=== PATIENT | female | born 1940 | race Caucasian/White ===

== ENCOUNTER 2019-05-18 05:23 | Emergency (ER) | payer MEDICARE, MEDICAID, SELFPAY ==
[2019-05-18 05:24] VITALS: BMI 27.4
--- NOTE | 2019-05-18 05:38 | PC.NURSE ---
EKG done 535 and shown to ER doctor.
--- NOTE | 2019-05-18 05:50 | XRR_ITS ---
PROCEDURE INFORMATION: Exam: XR Chest, 1 View Exam date and time: 05/18/2019 6:01 AM Age: 78 years old Clinical indication: Chest pain; Prior surgery; Surgery type: Pacemaker TECHNIQUE: Imaging protocol: XR of the chest Views: 1 view. COMPARISON: CR Chest 1 [place] [id number] 03/22/2019 8:08 PM FINDINGS: Tubes, catheters and devices: Pacemaker overlies the left chest with leads positioned RA and RV. Lungs: Minor area of pneumonitis or atelectasis right lower lobe. Pleural space: Persistent pleural-based opacity in the right upper chest laterally most likely similar allowing for differences of positioning. Probably external soft tissue density at the lower left chest versus pleural thickening or doubtful left-sided effusion. Heart/Mediastinum: Stable accentuated heart size. Surgical clips upper mediastinum with mild widening of the upper mediastinum which is similar. Bones/joints: Osteopenia. Other findings: Bilateral scattered calcified granulomata. XR/XR chest 1V portable [id number] IMPRESSION: 1. Similar pleural based opacity of the right upper chest laterally. 2. Lower left chest superimposed soft tissue density versus less likely pleural effusion. 3. Minor area of pneumonitis or atelectasis right lower lobe. 4. Stable cardiomegaly.
--- NOTE | 2019-05-18 05:50 | ECG_ITS ---
Measurements Intervals [place] Rate: 103 P: [place]: 0 QRS: -42 QRSD: 130 T: 123 QT: 374 QTc: 490 ATRIAL FIBRILLATION WITH RAPID VENTRICULAR RESPONSE LEFT AXIS DEVIATION [QRS AXIS < -30] VOLTAGE CRITERIA FOR LVH [MEETS CRITERIA IN ONE OF: R(aVL), S(V1), R(V5), R(V5/ (V5/V6)+S(V1)] POSSIBLE ANTEROSEPTAL MYOCARDIAL INFARCTION , PROBABLY OLD [30 ms Q WAVE IN V1-V4] ST DEVIATION AND MODERATE T-WAVE ABNORMALITY, CONSIDER LATERAL ISCHEMIA [-0.1+ mV mV T WAVE IN I/aVL/V5/V6] Compared to ECG 03/22/2019 21:03:18 No significant changes Electronically Signed On 05-18-2019 18:53:21 KNURLING MACHINE OPERATOR by Lazaro Marinelli M.D. [email or web address]
--- NOTE | 2019-05-18 05:51 | ED_ITS ---
Documented by User: Urmila Urbina 05/18/19 10:29 HPI - General Adult General: Chief complaint: General Medical Stated complaint: CHEST PAIN Time Seen by Provider: 05/18/19 05:31 History of Present Illness: HPI narrative: Patient received in signout from Dr. Lassiter. Please see his note for his history, physical exam and medical decision-making notes. Physical Exam Const: COMMON NORMALS: no apparent distress, oriented x3, no limitations, healthy appearing and well nourished EXAM LIMITATIONS: no altered mental status GENERAL APPEARANCE: cooperative, well kempt and well developed ORIENTATION/CONSCIOUSNESS: Yes awake HENMT: COMMON NORMALS: normocephalic, head/scalp atraumatic, hearing grossly normal bilaterally, external ears normal, EAC's normal, external nose normal and moist oral mucous membranes HEAD & SCALP: normal to inspection, normocephalic and atraumatic FACE & SINUS: normal facial exam and face symmetric NOSE: external nose normal and nares normal EXTERNAL EAR: Yes external ears normal EXTERNAL AUDITORY CANAL: EAC's normal MOUTH: oral and palatal mucosa normal and tongue normal Eye: COMMON NORMALS: PERRL, EOMs intact bilaterally, conjunctivae normal and no scleral icterus GENERAL EYE: normal appearance of both eyes and normal light reflex CONJUNCTIVA: Yes conjunctivae normal SCLERA: sclerae normal CORNEA: Yes corneas normal PUPIL: Yes PERRL DIRECT OPHTHALMOSCOPY: Yes normal light reflex Neck/C-Spine: COMMON NORMALS: full ROM, no lymphadenopathy, supple, no meningeal signs and no JVD GENERAL: Yes normal visual inspection and Yes trachea midline CERVICAL SPINE: Yes cervical ROM normal Chest: COMMONS NORMALS: inspection of chest normal and palpation of chest normal Resp: COMMON NORMALS: normal respiratory effort, no retractions, no use of accessory muscles and clear to auscultation bilaterally EFFORT & INSPECTION: Yes able to speak in complete sentences AUSCULTATION: clear to auscultation bilaterally Cardio: COMMON NORMALS: no JVD, regular rate, regular rhythm, S1 normal heart sound, S2 normal heart sound, no gallops, no clicks, no murmurs and no rub JUGULAR VENOUS DISTENTION: no JVD RATE: regular rate RHYTHM: regular rhythm HEART SOUNDS: S1 normal and S2 normal GI: COMMON NORMALS: soft to palpation, non-tender, no hepatosplenomegaly and no masses INSPECTION: Yes normal to inspection PALPATION: Yes soft and Yes no hepatosplenomegaly : COMMON NORMALS: Yes no CVA tenderness BLADDER/KIDNEY EXAM: Yes no CVA tenderness Back/Pelvis: COMMON NORMALS: no CVA tenderness, thoracic and lumbar spine normal to inspection, no thoracic nor lumbar tenderness and thoraco-lumbar ROM normal Extremity: COMMON NORMALS: normal to inspection, full ROM, normal capillary refill, no joint enlargement, no clubbing, cyanosis or edema and no calf tenderness Neuro: COMMON NORMALS: oriented x3, CN's II-XII intact bilaterally, moves all extremities, no focal motor deficits and no sensory deficits noted MENINGEAL SIGNS: Yes no meningeal signs Psych: COMMON NORMALS: mental status grossly normal, thought process normal, cooperative, affect normal, speech normal and activity/motor behavior normal APPEARANCE: Yes well kempt SPEECH: Yes normal speech THOUGHT PROCESS: normal thought process Skin: COMMON NORMALS: no rashes or lesions noted, skin turgor normal, no jaundice, no petechiae and no mottling GENERAL SKIN EXAM: no rashes or lesions noted and turgor normal Course Vital Signs: Vital signs: Vital Signs Pulse Rate 80 05/18/19 09:29 Respiratory Rate 14 05/18/19 09:29 Blood Pressure 112/75 05/18/19 09:29 Pulse Oximetry 97 05/18/19 09:29 MDM - General Adult MDM Narrative: Medical decision making narrative: She comes in with a complaint of chest pain but she adamantly denies this. At this time she states she wants to go home and she does not want to be here. I reviewed this with her son Mr. Glynn and he is fine with her going back to the jail. The patie nt shows no sign of toxicity and is oriented to person, place and time. She understands she is welcome to return if her symptoms change but at this time she wants to be discharged. Patient's EKG shows A. fib and she slows an elevated rate in the 100s at this time but she is angry and yelling because she wants to leave now. I see no sign of sepsis, overwhelming pneumonia, she not hypoxic and she speaking clearly and is agitated. Her son does not want me to become any more aggressive with her work-up. I did review the case with Dr. Kee and he is okay with doxycycline covering her pneumonia as she has so many other listed allergies. He does state if there is any problems he will have the patient sent back from the jail but at this time he is fine with her being discharged. Lab Data: Attestation: I reviewed the patient's lab results. Labs: Lab Results 05/18/19 05/18/19 05/18/19 Range/Units 06:06 06:06 06:06 WBC 6.4 (4.0-10.0) 10^3/ uL RBC 4.45 (4.1-5.3) 10^6/u L Hgb 11.8 (11.5-15.3) g/dL Hct 38.8 (37.0-47.0) % MCV 87.2 (81-99) fL MCH 26.5 L (28.0-34.0) pg MCHC 30.4 (30.0-36.0) g/dL RDW 16.0 H (12.1-15.1) % Plt Count 257 (130-400) 10^3/c mm MPV 9.8 (7.4-10.4) fL Neut % (Auto) 57.5 % Lymph % (Auto) 22.5 % [place] % (Auto) 17.6 % Eos % (Auto) 1.6 % Baso % (Auto) 0.6 % Neut # (Auto) 3.7 (1.8-7.7) 10^3/u L Lymph # (Auto) 1.4 (0.8-4.8) 10^3/u L [place] # (Auto) 1.1 H (0.2-0.9) 10^3/u L Eos # (Auto) 0.1 (0.0-0.8) 10^3/u L Baso # (Auto) 0.0 (0.0-0.1) 10^3/u L Nucleated RBC % (a uto) 0 % Nucleated RBCs # 0.0 /100WBC Sodium 137 (136-145) mmol/L Potassium 3.5 (3.5-5.1) mmol/L Chloride 97 L (98-107) mmol/L Carbon Dioxide 28 (22-29) mmol/L Anion Gap 15.5 (5-19) BUN 13 (8-23) mg/dL Creatinine 1.1 H (0.5-0.9) mg/dL Glucose 114 H (74-106) mg/dL Calculated Osmolal ity 281 L (285-295) mOsm/k g Lactate (0.5-2.2) mmol/L Calcium 9.3 (8.5-10.5) mg/dL Troponin T Baselin e 35 H (0-10) ng/mL Troponin T 120 Min [place] (0-10) ng/mL Delta Troponin T (0-10) ABS# NT-Pro-B Natriuret Pep 2775 H (0-450) pg/mL 05/18/19 05/18/19 Range/Units 07:05 07:55 WBC (4.0-10.0) 10^3/ uL RBC (4.1-5.3) 10^6/u L Hgb (11.5-15.3) g/dL Hct (37.0-47.0) % MCV (81-99) fL MCH (28.0-34.0) pg MCHC (30.0-36.0) g/dL RDW (12.1-15.1) % Plt Count (130-400) 10^3/c mm MPV (7.4-10.4) fL Neut % (Auto) % Lymph % (Auto) % [place] % (Auto) % Eos % (Auto) % Baso % (Auto) % Neut # (Auto) (1.8-7.7) 10^3/u L Lymph # (Auto) (0.8-4.8) 10^3/u L [place] # (Auto) (0.2-0.9) 10^3/u L Eos # (Auto) (0.0-0.8) 10^3/u L Baso # (Auto) (0.0-0.1) 10^3/u L Nucleated RBC % (a uto) % Nucleated RBCs # /100WBC Sodium (136-145) mmol/L Potassium (3.5-5.1) mmol/L Chloride (98-107) mmol/L Carbon Dioxide (22-29) mmol/L Anion Gap (5-19) BUN (8-23) mg/dL Creatinine (0.5-0.9) mg/dL Glucose (74-106) mg/dL Calculated Osmolal ity (285-295) mOsm/k g Lactate 1.1 (0.5-2.2) mmol/L Calcium (8.5-10.5) mg/dL Troponin T Baselin e (0-10) ng/mL Troponin T 120 Min [place] 37.16 H (0-10) ng/mL Delta Troponin T 2.16 (0-10) ABS# NT-Pro-B Natriuret Pep (0-450) pg/mL Discharge Plan Discharge Patient Disposition: SNF w Plan Readm Clinical Impression: Chest pain Qualifiers: Chest pain type: unspecified Qualified Code(s): R07.9 - Chest pain, unspecified Pneumonia Qualifiers: Pneumonia type: due to unspecified organism Laterality: right Lung location: lower lobe of lung Qualified Code(s): J18.9 - Pneumonia, unspecified organism Condition: Stable Prescriptions: New doxycycline hyclate 100 mg capsule 100 mg PO BID 10 Days Qty: 20 RF: 0 No Action albuterol sulfate 2.5 mg /3 mL (0.083 %) Solution For Nebulization 2.5 mg INHALATION Q4H PRN (Reason: Wheezing) RF: 0 hydrocodone-acetaminophen 5-325 mg Tablet 1 tab PO Q4H PRN (Reason: Pain) RF: 0 ondansetron HCl [Zofran] 4 mg Tablet 4 mg PO Q4H PRN (Reason: Nausea And Vomiting) RF: 0 lorazepam [Ativan] 0.5 mg Tablet 0.5 mg PO TID PRN (Reason: Anxiety) RF: 0 magnesium hydroxide [Milk of Magnesia] 400 mg/5 mL Suspension 30 ml PO DAILY PRN (Reason: Constipation) RF: 0 diphenhydramine HCl [Benadryl] 25 mg Capsule 25 mg PO BEDTIME PRN (Reason: Allergy Symptoms) RF: 0 calcium carbonate [Tums] 200 mg calcium (500 mg) Tablet,Chewable 200 - 400 mg PO Q4H PRN (Reason: Indigestion) RF: 0 Fleet Enema 19-7 gram/118 mL Enema 118 ml OR DAILY PRN (Reason: Constipation) RF: 0 nitroglycerin 0.4 mg Tablet, Sublingual 0.4 mg SUBLINGUAL Q5M PRN (Reason: Chest Pain) RF: 0 bisacodyl [Dulcolax (bisacodyl)] 5 mg Tablet,Delayed Release (Dr/Ec) 5 mg PO DAILY PRN (Reason: Constipation) RF: 0 nystatin 100,000 unit/gram Powder 1 applic TOPICAL BID PRN (Reason: galded area) RF: 0 Preparation H(pe,cb) 0.25-88.44 % Suppository 1 supp OR Q6H PRN (Reason: Hemorrhoids) RF: 0 Discharge Orders: Discharge Order (Routine); Ordered 05/18/19 Ordered By: Urmila Urbina Referrals: Andreas Sanabria DO [Primary Care Provider] - Discharge Diet: Usual diet Discharge Activity: Increase activity as tolerated Patient Instructions: Bacterial Pneumonia (ED) Activity Restrictions/Additional Instructions: Please return to the ER immediately for any of the signs or symptoms listed on your discharge instruction sheets, worsening/changing of your symptoms, you are not getting better as quickly as expected, or for ANY other cause or concerns. Discharge Date/Time: 05/18/19 09:31 Sign Out Sign Out Data: Patient Sign Out occurred on 05/18/19 at 06:31. Patient's care was discussed, and care was transferred from to Urmila Urbina. Coding Level of Care Code ED Asphalt Dauber for Chg Fwd Exam Problem Focused Documented by User: Srinivasa Lassiter DO 05/18/19 22:29 HPI - General Adult General: Chief complaint: General Medical Stated complaint: CHEST PAIN Time Seen by Provider: 05/18/19 05:31 History of Present Illness: HPI narrative: 78-year-old jail patient presenting with supposedly a complaint of chest pain, although she denied it on my exam. She has been coughing. She has been treated in the jail for pneumonia evidently. Onset (ago): day(s) Associated symptoms: Reports chest pain, cough, decreased appetite and fevers/chills; Deny dyspnea, headache(s), nausea, rash or vomiting Review of Systems Const: Denies: fever or chills Eyes: Denies: change in vision or blurry vision Card: Reports: chest pain Resp: Reports: non-productive cough; Denies: shortness of breath, productive cough or wheezing GI: Denies: abdominal pain, nausea, vomiting, rectal pain, blood in stool or black tarry stool : Denies: painful urination, urinary frequency, urinary urgency or blood in urine Musc: Denies: back pain Skin/Breast: Denies: rash Neuro: Denies: headache or dizziness Course ED course: Patient checked out to Dr. Urbina at shift change Vital Signs: Vital signs: Vital Signs Pulse Rate 80 05/18/19 09:29 Respiratory Rate 14 05/18/19 09:29 Blood Pressure 112/75 05/18/19 09:29 Pulse Oximetry 97 05/18/19 09:29 [facility] - General Adult Lab Data: Labs: Lab Results 05/18/19 05/18/19 05/18/19 Range/Units 06:06 06:06 06:06 WBC 6.4 (4.0-10.0) 10^3/ uL RBC 4.45 (4.1-5.3) 10^6/u L Hgb 11.8 (11.5-15.3) g/dL Hct 38.8 (37.0-47.0) % MCV 87.2 (81-99) fL MCH 26.5 L (28.0-34.0) pg MCHC 30.4 (30.0-36.0) g/dL RDW 16.0 H (12.1-15.1) % Plt Count 257 (130-400) 10^3/c mm MPV 9.8 (7.4-10.4) fL Neut % (Auto) 57.5 % Lymph % (Auto) 22.5 % [place] % (Auto) 17.6 % Eos % (Auto) 1.6 % Baso % (Auto) 0.6 % Neut # (Auto) 3.7 (1.8-7.7) 10^3/u L Lymph # (Auto) 1.4 (0.8-4.8) 10^3/u L [place] # (Auto) 1.1 H (0.2-0.9) 10^3/u L Eos # (Auto) 0.1 (0.0-0.8) 10^3/u L Baso # (Auto) 0.0 (0.0-0.1) 10^3/u L Nucleated RBC % (a uto) 0 % Nucleated RBCs # 0.0 /100WBC Sodium 137 (136-145) mmol/L Potassium 3.5 (3.5-5.1) mmol/L Chloride 97 L (98-107) mmol/L Carbon Dioxide 28 (22-29) mmol/L Anion Gap 15.5 (5-19) BUN 13 (8-23) mg/dL Creatinine 1.1 H (0.5-0.9) mg/dL Glucose 114 H (74-106) mg/dL Calculated Osmolal ity 281 L (285-295) mOsm/k g Lactate (0.5-2.2) mmol/L Calcium 9.3 (8.5-10.5) mg/dL Troponin T Baselin e 35 H (0-10) ng/mL Troponin T 120 Min [place] (0-10) ng/mL Delta Troponin T (0-10) ABS# NT-Pro-B Natriuret Pep 2775 H (0-450) pg/mL 05/18/19 05/18/19 Range/Units 07:05 07:55 WBC (4.0-10.0) 10^3/ uL RBC (4.1-5.3) 10^6/u L Hgb (11.5-15.3) g/dL Hct (37.0-47.0) % MCV (81-99) fL MCH (28.0-34.0) pg MCHC (30.0-36.0) g/dL RDW (12.1-15.1) % Plt Count (130-400) 10^3/c mm MPV (7.4-10.4) fL Neut % (Auto) % Lymph % (Auto) % [place] % (Auto) % Eos % (Auto) % Baso % (Auto) % Neut # (Auto) (1.8-7.7) 10^3/u L Lymph # (Auto) (0.8-4.8) 10^3/u L [place] # (Auto) (0.2-0.9) 10^3/u L Eos # (Auto) (0.0-0.8) 10^3/u L Baso # (Auto) (0.0-0.1) 10^3/u L Nucleated RBC % (a uto) % Nucleated RBCs # /100WBC Sodium (136-145) mmol/L Potassium (3.5-5.1) mmol/L Chloride (98-107) mmol/L Carbon Dioxide (22-29) mmol/L Anion Gap (5-19) BUN (8-23) mg/dL Creatinine (0.5-0.9) mg/dL Glucose (74-106) mg/dL Calculated Osmolal ity (285-295) mOsm/k g Lactate 1.1 (0.5-2.2) mmol/L Calcium (8.5-10.5) mg/dL Troponin T Baselin e (0-10) ng/mL Troponin T 120 Min [place] 37.16 H (0-10) ng/mL Delta Troponin T 2.16 (0-10) ABS# NT-Pro-B Natriuret Pep (0-450) pg/mL Discharge Plan Discharge Patient Disposition: SNF w Plan Readm Clinical Impression: Chest pain Qualifiers: Chest pain type: unspecified Qualified Code(s): R07.9 - Chest pain, unspecified Pneumonia Qualifiers: Pneumonia type: due to unspecified organism Laterality: right Lung location: lower lobe of lung Qualified Code(s): J18.9 - Pneumonia, unspecified organism Condition: Stable Prescriptions: New doxycycline hyclate 100 mg capsule 100 mg PO BID 10 Days Qty: 20 RF: 0 No Action albuterol sulfate 2.5 mg /3 mL (0.083 %) Solution For Nebulization 2.5 mg INHALATION Q4H PRN (Reason: Wheezing) RF: 0 hydrocodone-acetaminophen 5-325 mg Tablet 1 tab PO Q4H PRN (Reason: Pain) RF: 0 ondansetron HCl [Zofran] 4 mg Tablet 4 mg PO Q4H PRN (Reason: Nausea And Vomiting) RF: 0 lorazepam [Ativan] 0.5 mg Tablet 0.5 mg PO TID PRN (Reason: Anxiety) RF: 0 magnesium hydroxide [Milk of Magnesia] 400 mg/5 mL Suspension 30 ml PO DAILY PRN (Reason: Constipation) RF: 0 diphenhydramine HCl [Benadryl] 25 mg Capsule 25 mg PO BEDTIME PRN (Reason: Allergy Symptoms) RF: 0 calcium carbonate [Tums] 200 mg calcium (500 mg) Tablet,Chewable 200 - 400 mg PO Q4H PRN (Reason: Indigestion) RF: 0 Fleet Enema 19-7 gram/118 mL Enema 118 ml OR DAILY PRN (Reason: Constipation) RF: 0 nitroglycerin 0.4 mg Tablet, Sublingual 0.4 mg SUBLINGUAL Q5M PRN (Reason: Chest Pain) RF: 0 bisacodyl [Dulcolax (bisacodyl)] 5 mg Tablet,Delayed Release (Dr/Ec) 5 mg PO DAILY PRN (Reason: Constipation) RF: 0 nystatin 100,000 unit/gram Powder 1 applic TOPICAL BID PRN (Reason: galded area) RF: 0 Preparation H(pe,cb) 0.25-88.44 % Suppository 1 supp OR Q6H PRN (Reason: Hemorrhoids) RF: 0 Discharge Orders: Discharge Order (Routine); Ordered 05/18/19 Ordered By: Urmila Urbina Referrals: Andreas Sanabria DO [Primary Care Provider] - Discharge Diet: Usual diet Discharge Activity: Increase activity as tolerated Patient Instructions: Bacterial Pneumonia (ED) Activity Restrictions/Additional Instructions: Please return to the ER immediately for any of the signs or symptoms listed on your discharge instruction sheets, worsening/changing of your symptoms, you are not getting better as quickly as expected, or for ANY other cause or concerns. Discharge Date/Time: 05/18/19 09:31 Sign Out Sign Out Data: Patient Sign Out occurred on 05/18/19 at 06:31. Patient's care was discussed, and care was transferred from to Urmila Urbina. Coding Level of Care Code ED Asphalt Dauber for Bety Fwarabella Exam Problem Focused
[2019-05-18 06:10] LABS: Basophils % 0.6 %; Eosinophils # 0.1 10^3/uL (0.0-0.8); Eosinophils % 1.6 %; Hematocrit 38.8 % (37.0-47.0); Hemoglobin 11.8 g/dL (11.5-15.3); Lymphocytes # 1.4 10^3/uL (0.8-4.8); Lymphocytes % 22.5 %; Mean Corpuscular HGB Conc 30.4 g/dL (30.0-36.0); Mean Corpuscular Hemoglobin 26.5 pg (28.0-34.0); Mean Corpuscular Volume 87.2 fL (81-99); Mean Platelet Volume 9.8 fL (7.4-10.4); Monocytes # 1.1 10^3/uL (0.2-0.9); Monocytes % 17.6 %; Neutrophils # 3.7 10^3/uL (1.8-7.7); Neutrophils % 57.5 %; Nucleated Red Blood Cells % 0 %; Platelet Count 257 10^3/cmm (130-400); Red Blood Count 4.45 10^6/uL (4.1-5.3); White Blood Count 6.4 10^3/uL (4.0-10.0)
[2019-05-18 06:30] LABS: Troponin(5th) Baseline 35 ng/mL (0-10)
[2019-05-18 06:39] VITALS: BP 128/73; PULSE 110; RESP 20
[2019-05-18 06:57] LABS: Blood Urea Nitrogen 13 mg/dL (8-23); Calcium 9.3 mg/dL (8.5-10.5); Carbon Dioxide 28 mmol/L (22-29); Glucose 114 mg/dL (74-106); NT Pro B Type Natriuretic Pept 2775 pg/mL (0-450)
[2019-05-18 07:04] LABS: Anion Gap 15.5 (5-19); Chloride 97 mmol/L (98-107); Osmolality Calculated 281 mOsm/kg (285-295); Potassium 3.5 mmol/L (3.5-5.1); Sodium 137 mmol/L (136-145)
--- NOTE | 2019-05-18 07:09 | PC.NURSE ---
Lab at bedside
--- NOTE | 2019-05-18 07:30 | PC.NURSE ---
Patient has positioned self on the foot of bed. She would like to go home. Patient not following commands. life support technician assigned to sit with patient.
[2019-05-18 07:31] LABS: Lactate (Lactic Acid level) 1.1 mmol/L (0.5-2.2)
--- NOTE | 2019-05-18 07:51 | PC.NURSE ---
Patient attempting to argue with staff. Sitter removed from room.
[2019-05-18 08:18] LABS: Troponin 5 2HR 37.16 ng/mL (0-10); Troponin 5 2HR Delta 2.16 ABS# (0-10)
[2019-05-18 09:29] VITALS: BP 112/75; PULSE 80; RESP 14; O2SAT 97
== END 2019-05-18 09:31 ==
PROVIDERS: Emergency Medicine; Emergency Provider Emergency Medicine; Family Provider Internal Medicine; PCP Internal Medicine
DX: R07.9 Chest pain, unspecified (principal); J18.9 Pneumonia, unspecified organism
CPT/HCPCS: 36415; 71045; 80048; 83605; 83880; 84484; 85025; 87040; 93005; 99281

== ENCOUNTER 2019-05-23 01:26 | Inpatient (IN) | payer MEDICARE, MEDICAID, SELFPAY ==
[2019-05-23] VITALS (50 sets, daily range): BP systolic 75–147; BP diastolic 34–92; PULSE 85–115; RESP 15–28; TEMP 36.6–37.4; O2SAT 89–98; BMI 33.3
--- NOTE | 2019-05-23 01:27 | ED_ITS ---
Entered by Martha Soto, acting as scribe for HPI - SOB/Dyspnea General: Chief Complaint: Shortness of Breath/Dyspnea Stated Complaint: RESP DISTRESS Time Seen by Provider: 05/23/19 01:27 Source: EMS Mode of arrival: EMS Limitations: no limitations History of Present Illness: HPI Narrative: 78 yo f came to the er by [facility]. Onset was tonight. Ems states that when they got there pt was at 76%. Pt does not have pneumoia but is being treated for it at [facility]. Patient denies any chest pain. She states she just is having difficulty breathing. She arrives in respiratory distress. Review of systems is limited secondary to the patient's respiratory distress. MD elicited complaint: shortness of breath and cough Onset (ago): day(s) (today) Context: recent illness Timing: constant Severity: moderate Relieving factors: oxygen and other (breathing treatment) Associated symptoms: Reports chest congestion and cough Treatment prior to arrival: oxygen Related Data: Home oxygen amount: 2 liters Review of Systems General: Reports: ROS unobtainable due to medical condition Resp: Reports: shortness of breath, productive cough and chest congestion PFSH ED PFSH: Statuses (acute, chronic, etc) shown below reflect problem list status as previously entered and may not be historically accurate Medical History (Updated 05/23/19 @ 03:25 by Lazaro Crockett MD) Abnormal breast biopsy (Acute) Acute on chronic diastolic (congestive) heart failure (Acute) Anxiety disorder, unspecified (Acute) Aortic regurgitation (Acute) Aortic stenosis (Acute) Arthritis (Acute) Atrial fibrillation (Acute) Bilateral pulmonary embolism (Acute) CAD (coronary artery disease) (Acute) Cancer (Acute) Cataract (Acute) CHF (congestive heart failure) (Acute) Chronic diastolic (congestive) heart failure (Acute) Controlled familial obstructive sleep apnea (Acute) COPD (chronic obstructive pulmonary disease) (Acute) Degenerative joint disease (Acute) Delusional disorders (Acute) Diabetes mellitus (Acute) DVT (deep venous thrombosis) (Acute) Emphysema of lung (Acute) Essential (primary) hypertension (Acute) Extended spectrum beta lactamase (ESBL) resistance (Acute) FH: mental illness (Acute) Fibromyalgia (Acute) Gastro-esophageal reflux disease without esophagitis (Acute) Gastroesophageal reflux (Acute) GI disease (Acute) Heart disease (Acute) Hyperlipemia (Acute) Hypertension (Acute) Hypokalemia (Acute) Insomnia, unspecified (Acute) emt intermediate (current) use of anticoagulants (Acute) Lung disease (Acute) Lung transplant recipient (Acute) Major depressive disorder, single episode, unspecified (Acute) Neurological disease (Acute) Obstructive sleep apnea (Acute) Osteoporosis (Acute) Other muscle spasm (Acute) Other pulmonary embolism without acute cor pulmonale (Acute) Otitis media (Acute) Pacemaker (Acute) Paroxysmal atrial fibrillation (Acute) Personal history of other malignant neoplasm of bronchus and lung (Acute) Pharyngitis (Acute) Presence of cardiac pacemaker (Acute) Pulmonary embolism (Acute) Pyelonephritis (Acute) Respiratory failure (Acute) Sinus bradycardia (Acute) Sleep apnea (Acute) Surgical History (Updated 05/23/19 @ 03:18 by Martha Soto) H/O: hysterectomy (Acute) Physical Exam Const: COMMON NORMALS: no apparent distress, oriented x3, no limitations, healthy appearing and well nourished EXAM LIMITATIONS: no altered mental status GENERAL APPEARANCE: cooperative, well kempt and well developed ORIENTATION/CONSCIOUSNESS: Yes awake HENMT: COMMON NORMALS: normocephalic, head/scalp atraumatic, hearing grossly normal bilaterally, external ears normal, EAC's normal, external nose normal and moist oral mucous membranes HEAD & SCALP: normal to inspection, normocephalic and atraumatic FACE & SINUS: normal facial exam and face symmetric NOSE: external nose normal and nares normal EXTERNAL EAR: Yes external ears normal EXTERNAL AUDITORY CANAL: EAC's normal MOUTH: oral and palatal mucosa normal and tongue normal Eye: COMMON NORMALS: PERRL, EOMs intact bilaterally, conjunctivae normal and no scleral icterus GENERAL EYE: normal appearance of both eyes and normal light reflex CONJUNCTIVA: Yes conjunctivae normal SCLERA: sclerae normal CORNEA: Yes corneas normal PUPIL: Yes PERRL DIRECT OPHTHALMOSCOPY: Yes normal light reflex Neck/C-Spine: COMMON NORMALS: full ROM, no lymphadenopathy, supple, no meningeal signs and no JVD GENERAL: Yes normal visual inspection and Yes tr achea midline CERVICAL SPINE: Yes cervical ROM normal Chest: COMMONS NORMALS: inspection of chest normal and palpation of chest normal Resp: EFFORT & INSPECTION: Yes abnormal respiratory pattern, Yes labored and Yes uses accessory muscles AUSCULTATION: crackles and rales Cardio: COMMON NORMALS: no JVD, S1 normal heart sound, S2 normal heart sound, no gallops, no clicks, no murmurs and no rub JUGULAR VENOUS DISTENTION: no JVD RATE: tachycardic RHYTHM: abnormal rhythm irregularly irregular HEART SOUNDS: S1 normal and S2 normal GI: COMMON NORMALS: soft to palpation, non-tender, no hepatosplenomegaly and no masses INSPECTION: Yes normal to inspection PALPATION: Yes soft and Yes no hepatosplenomegaly : COMMON NORMALS: Yes no CVA tenderness BLADDER/KIDNEY EXAM: Yes no CVA tenderness Back/Pelvis: COMMON NORMALS: no CVA tenderness, thoracic and lumbar spine normal to inspection, no thoracic nor lumbar tenderness and thoraco-lumbar ROM normal Extremity: COMMON NORMALS: normal to inspection, full ROM, normal capillary refill, no joint enlargement, no clubbing, cyanosis or edema and no calf tenderness Neuro: COMMON NORMALS: oriented x3, CN's II-XII intact bilaterally, moves all extremities, no focal motor deficits and no sensory deficits noted MENINGEAL SIGNS: Yes no meningeal signs Psych: COMMON NORMALS: mental status grossly normal, thought process normal, cooperative, affect normal, speech normal and activity/motor behavior normal APPEARANCE: Yes well kempt SPEECH: Yes normal speech THOUGHT PROCESS: normal thought process Skin: COMMON NORMALS: no rashes or lesions noted, skin turgor normal, no jaundice, no petechiae and no mottling GENERAL SKIN EXAM: no rashes or lesions noted and turgor normal Course Vital Signs: Vital signs: Vital Signs Temperature 99.0 F 05/23/19 01:40 Pulse Rate 108 H 05/23/19 02:40 Respiratory Rate 22 H 05/23/19 02:40 Blood Pressure 122/60 05/23/19 02:40 Pulse Oximetry 98 05/23/19 02:40 MDM - SOB/Dyspnea MDM Narrative: Medical decision making narrative: The patient came in respiratory distress but is better now on BiPAP. She is diuresing well. EKG is stable with a interventricular conduction delay and A. fib. I reviewed the case in full with Dr. Crockett and he agrees to admit to the ICU for acute congestive heart failure exacerbation and possible NSTEMI. Lab Data: Attestation: I reviewed the patient's lab results. Labs: Lab Results 05/23/19 05/23/1905/23/20 Range/Units 01:40 01:45 01:45 WBC 13.1 H (4.0-10.0) 10^3/ uL RBC 4.65 (4.1-5.3) 10^6/u L Hgb 12.3 (11.5-15.3) g/dL Hct 40.0 (37.0-47.0) % MCV 86.0 (81-99) fL MCH 26.5 L (28.0-34.0) pg MCHC 30.8 (30.0-36.0) g/dL RDW 16.2 H (12.1-15.1) % Plt Count 226 (130-400) 10^3/c mm MPV 10.5 H (7.4-10.4) fL Neut % (Auto) 77.9 % Lymph % (Auto) 12.1 % [place] % (Auto) 9.3 % Eos % (Auto) 0.0 % Baso % (Auto) 0.2 % Neut # (Auto) 10.2 H (1.8-7.7) 10^3/u L Lymph # (Auto) 1.6 (0.8-4.8) 10^3/u L [place] # (Auto) 1.2 H (0.2-0.9) 10^3/u L Eos # (Auto) 0.0 (0.0-0.8) 10^3/u L Baso # (Auto) 0.0 (0.0-0.1) 10^3/u L Nucleated RBC % (a uto) 0 % Nucleated RBCs # 0.0 /100WBC PT 15.60 H (10.5-13.3) SECO NDS INR 1.20 (0.8-1.2) Specimen Type Sample Site ABG pH (7.35-7.45) ABG pCO2 (35-45) mmHg ABG pO2 (80.0-100.0) mmH g ABG HCO3 (22-26) mmol/L ABG Base Excess (-2.0-2.0) mmol/ L Keagan Test Hematocrit (37-47) % O2 Delivery Device O2 Liters/Min % Degreasing Solution Reclaimer ID Sodium (136-145) mmol/L Potassium (3.5-5.1) mmol/L Chloride (98-107) mmol/L Carbon Dioxide (22-29) mmol/L Anion Gap (5-19) BUN (8-23) mg/dL Creatinine (0.5-0.9) mg/dL Glucose (74-106) mg/dL Lactic Acid (0.5-2.2) mmol/L Calcium (8.5-10.5) mg/dL Total Bilirubin (0.15-1.2) mg/dL AST (0-32) U/L ALT (0-33) U/L Alkaline Phosphata se (35-105) IU/L Troponin T Baselin e (0-10) ng/mL NT-Pro-B Natriuret Pep (0-450) pg/mL Total Protein (6.6-8.7) g/dL Albumin (3.5-5.2) g/dL Globulin (1.3-4.6) g/dL Influenza Type A A g Negative (Negative) POC Influenza B Ag Negative (Negative) 05/23/19 05/23/19 05/23/19 Range/Units 01:45 01:45 01:45 WBC (4.0-10.0) 10^3/ uL RBC (4.1-5.3) 10^6/u L Hgb (11.5-15.3) g/dL Hct (37.0-47.0) % MCV (81-99) fL MCH (28.0-34.0) pg MCHC (30.0-36.0) g/dL RDW (12.1-15.1) % Plt Count (130-400) 10^3/c mm MPV (7.4-10.4) fL Neut % (Auto) % Lymph % (Auto) % [place] % (Auto) % Eos % (Auto) % Baso % (Auto) % Neut # (Auto) (1.8-7.7) 10^3/u L Lymph # (Auto) (0.8-4.8) 10^3/u L [place] # (Auto) (0.2-0.9) 10^3/u L Eos # (Auto) (0.0-0.8) 10^3/u L Baso # (Auto) (0.0-0.1) 10^3/u L Nucleated RBC % (a uto) % Nucleated RBCs # /100WBC PT (10.5-13.3) SECO NDS INR (0.8-1.2) Specimen Type Sample Site ABG pH (7.35-7.45) ABG pCO2 (35-45) mmHg ABG pO2 (80.0-100.0) mmH g ABG HCO3 (22-26) mmol/L ABG Base Excess (-2.0-2.0) mmol/ L Keagan Test Hematocrit (37-47) % O2 Delivery Device O2 Liters/Min % Degreasing Solution Reclaimer ID Sodium 136 (136-145) mmol/L Potassium 3.6 (3.5-5.1) mmol/L Chloride 97 L (98-107) mmol/L Carbon Dioxide 25 (22-29) mmol/L Anion Gap 17.6 (5-19) BUN 23 (8-23) mg/dL Creatinine 1.2 H (0.5-0.9) mg/dL Glucose 140 H (74-106) mg/dL Lactic Acid 2.1 (0.5-2.2) mmol/L Calcium 9.0 (8.5-10.5) mg/dL Total Bilirubin 0.6 (0.15-1.2) mg/dL AST 25 (0-32) U/L ALT 9 (0-33) U/L Alkaline Phosphata se 85 (35-105) IU/L Troponin T Baselin e 111 H* (0-10) ng/mL NT-Pro-B Natriuret Pep 45461 H (0-450) pg/mL Total Protein 7.2 (6.6-8.7) g/dL Albumin 2.8 L (3.5-5.2) g/dL Globulin 4.4 (1.3-4.6) g/dL Influenza Type A A g (Negative) POC Influenza B Ag (Negative) 05/23/19 Range/Units 01:55 WBC (4.0-10.0) 10^3/ uL RBC (4.1-5.3) 10^6/u L Hgb (11.5-15.3) g/dL Hct (37.0-47.0) % MCV (81-99) fL MCH (28.0-34.0) pg MCHC (30.0-36.0) g/dL RDW (12.1-15.1) % Plt Count (130-400) 10^3/c mm MPV (7.4-10.4) fL Neut % (Auto) % Lymph % (Auto) % [place] % (Auto) % Eos % (Auto) % Baso % (Auto) % Neut # (Auto) (1.8-7.7) 10^3/u L Lymph # (Auto) (0.8-4.8) 10^3/u L [place] # (Auto) (0.2-0.9) 10^3/u L Eos # (Auto) (0.0-0.8) 10^3/u L Baso # (Auto) (0.0-0.1) 10^3/u L Nucleated RBC % (a uto) % Nucleated RBCs # /100WBC PT (10.5-13.3) SECO NDS INR (0.8-1.2) Specimen Type Arterial Sample Site Radial, right ABG pH 7.45 (7.35-7.45) ABG pCO2 39.1 (35-45) mmHg ABG pO2 89.7 (80.0-100.0) mmH g ABG HCO3 27.0 H (22-26) mmol/L ABG Base Excess 2.8 H (-2.0-2.0) mmol/ L Keagan Test Pos Hematocrit 37.5 (37-47) % O2 Delivery Device Nc O2 Liters/Min 6.0 % Degreasing Solution Reclaimer ID [email or web address] Sodium (136-145) mmol/L Potassium (3.5-5.1) mmol/L Chloride (98-107) mmol/L Carbon Dioxide (22-29) mmol/L Anion Gap (5-19) BUN (8-23) mg/dL Creatinine (0.5-0.9) mg/dL Glucose (74-106) mg/dL Lactic Acid (0.5-2.2) mmol/L Calcium (8.5-10.5) mg/dL Total Bilirubin (0.15-1.2) mg/dL AST (0-32) U/L ALT (0-33) U/L Alkaline Phosphata se (35-105) IU/L Troponin T Baselin e (0-10) ng/mL NT-Pro-B Natriuret Pep (0-450) pg/mL Total Protein (6.6-8.7) g/dL Albumin (3.5-5.2) g/dL Globulin (1.3-4.6) g/dL Influenza Type A A g (Negative) POC Influenza B Ag (Negative) Imaging Data^: CXR: My impression: Mild congestive heart failure present cardiomegaly. Discharge Plan Discharge Prescriptions: No Action Lasix 40 mg Tablet 40 mg PO BID RF: 0 sotalol 80 mg Tablet 80 mg PO BID RF: 0 potassium chloride 20 mEq Tablet,Er Particles/Crystals 20 meq PO DAILY RF: 0 Ativan 0.5 mg Tablet 0.5 mg PO TID PRN (Reason: Anxiety) RF: 0 Culturelle 10 billion cell Capsule 1 cap PO DAILY RF: 0 spironolactone 50 mg Tablet 50 mg PO DAILY RF: 0 Cymbalta 60 mg Capsule,Delayed Release(Dr/Ec) 60 mg PO DAILY RF: 0 omeprazole 20 mg Tablet,Delayed Release (Dr/Ec) 20 mg PO DAILY RF: 0 Eliquis 5 mg Tablet 5 mg PO BID RF: 0 albuterol sulfate 2.5 mg /3 mL (0.083 %) Solution For Nebulization 2.5 mg INHALATION Q4H PRN (Reason: Wheezing) RF: 0 hydrocodone-acetaminophen 5-325 mg Tablet 1 tab PO Q4H PRN (Reason: Pain) RF: 0 ondansetron HCl [Zofran] 4 mg Tablet 4 mg PO Q4H PRN (Reason: Nausea And Vomiting) RF: 0 lorazepam [Ativan] 0.5 mg Tablet 0.5 mg PO TID PRN (Reason: Anxiety) RF: 0 magnesium hydroxide [Milk of Magnesia] 400 mg/5 mL Suspension 30 ml PO DAILY PRN (Reason: Constipation) RF: 0 diphenhydramine HCl [Benadryl] 25 mg Capsule 25 mg PO BEDTIME PRN (Reason: Allergy Symptoms) RF: 0 calcium carbonate [Tums] 200 mg calcium (500 mg) Tablet,Chewable 200 - 400 mg PO Q4H PRN (Reason: Indigestion) RF: 0 Fleet Enema 19-7 gram/118 mL Enema 118 ml IN DAILY PRN (Reason: Constipation) RF: 0 nitroglycerin 0.4 mg Tablet, Sublingual 0.4 mg SUBLINGUAL Q5M PRN (Reason: Chest Pain) RF: 0 bisacodyl [Dulcolax (bisacodyl)] 5 mg Tablet,Delayed Release (Dr/Ec) 5 mg PO DAILY PRN (Reason: Constipation) RF: 0 nystatin 100,000 unit/gram Powder 1 applic TOPICAL BID PRN (Reason: galded area) RF: 0 Preparation H(pe,cb) 0.25-88.44 % Suppository 1 supp IN Q6H PRN (Reason: Hemorrhoids) RF: 0 doxycycline hyclate 100 mg capsule 100 mg PO BID 10 Days Qty: 20 RF: 0 Coding Level of Care Code ED Rod Tape Operator for Chg Fwd Exam Problem Focused The documentation recorded by the Charles daugherty Stephanie Lyn, accurately reflects the service I personally performed and the decisions made by Carlitos guerrero Eli N May 23, 2019 01:26
--- NOTE | 2019-05-23 01:30 | XR_ITS ---
WS: [id number] CHEST XRAY TECHNIQUE: Portable chest. CLINICAL INFORMATION: cough COMPARISON: May 18, 2019 FINDINGS: Cardiac pacer. Surgical clips thoracic inlet. Heart: Normal cardiac silhouette. Tortuous thoracic aorta. Aortic calcification. Lungs: Chronic emphysematous changes. No acute pulmonary infiltrates. Tiny left pleural effusion/pleu ral thickening. Small amount of patchy infiltrate left lung base laterally. Bones: Osteopenia. XR/XR chest 1V portable [id number] IMPRESSION: 1. Trace left pleural fluid/pleural thickening with a tiny amount of infiltrat e left lower lobe. Recommend correlation for pneumonia. 2. Chronic emphysematous changes. 3. Cardiac pacer.
--- NOTE | 2019-05-23 01:31 | ECG_ITS ---
Measurements Intervals [place] Rate: 109 P: 69 [place]: 156 QRS: -51 QRSD: 125 T: 111 QT: 362 QTc: 489 SINUS TACHYCARDIA WITH OCCASIONAL SUPRAVENTRICULAR PREMATURE COMPLEXES LEFT ANTERIOR FASCICULAR BLOCK [QRS AXIS <= -45, QR IN I, RS IN II] LEFT VENTRICULAR HYPERTROPHY AND ST-T CHANGE [VOLTAGE CRITERIA PLUS ST/T A ABNORMALITY] POSSIBLE ANTEROSEPTAL MYOCARDIAL INFARCTION , OF INDETERMINATE AGE [30 ms Q WAVE IN V1-V4] Nonspecific ST and T wave changes Compared to ECG 05/18/2019 05:38:35 Left anterior fascicular block now present ST (T wave) deviation now present Atrial fibrillation no longer present Myocardial infarct finding still present Electronically Signed On 05-23-2019 15:55:02 BACKHOE OPERATOR by Irineo Soni M.D. [email or web address]
--- NOTE | 2019-05-23 01:49 | PC.NURSE ---
EKG done at 0146 and shown to ER doctor.
[2019-05-23] MEDS: ondansetron 2 mg/ML SDV 2 mL 4 MG IVP (01:52)
[2019-05-23] MEDS: ipratropium-albuterol 3 mL Neb 9 ML INHALATION (01:52)
[2019-05-23] MEDS: clindamycin 900 MG/50 ML PREMIX 100 MG IV (01:55)
[2019-05-23 01:56] LABS: ABG PCO2 39.1 mmHg (35-45); ABG PH Result 7.45 (7.35-7.45); Arterial Blood Gas Hematocrit 37.5 % (37-47); Base Excess ABG 2.8 mmol/L (-2.0-2.0); Blood Gas Allen Test Pos; Blood Gas Sample Site Radial, right; Blood Gas Sample Type Arterial; Oxygen Device NC; PO2 ABG 89.7 mmHg (80.0-100.0)
[2019-05-23 02:00] LABS: Basophils % 0.2 %; Hemoglobin 12.3 g/dL (11.5-15.3); Lymphocytes # 1.6 10^3/uL (0.8-4.8); Lymphocytes % 12.1 %; Mean Corpuscular HGB Conc 30.8 g/dL (30.0-36.0); Mean Corpuscular Hemoglobin 26.5 pg (28.0-34.0); Mean Platelet Volume 10.5 fL (7.4-10.4); Monocytes # 1.2 10^3/uL (0.2-0.9); Monocytes % 9.3 %; Neutrophils # 10.2 10^3/uL (1.8-7.7); Neutrophils % 77.9 %; Nucleated Red Blood Cells % 0 %; Platelet Count 226 10^3/cmm (130-400); Red Blood Count 4.65 10^6/uL (4.1-5.3); Red Cell Distribution Width 16.2 % (12.1-15.1); White Blood Count 13.1 10^3/uL (4.0-10.0)
[2019-05-23 02:18] LABS: Lactic Sepsis W/Reflex 2.1 mmol/L (0.5-2.2)
[2019-05-23 02:19] LABS: Influenza A by IFA Negative (Negative); Influenza B by IFA Negative (Negative)
[2019-05-23] MEDS: doxycycline 100 MG in sodium chloride 0.9% (plus) 100 ML IV (02:30)
[2019-05-23 02:31] LABS: Alanine Aminotransferase 9 U/L (0-33); Albumin Level 2.8 g/dL (3.5-5.2); Alkaline Phosphatase 85 IU/L (35-105); Anion Gap 17.6 (5-19); Aspartate Amino Transferase 25 U/L (0-32); Blood Urea Nitrogen 23 mg/dL (8-23); Carbon Dioxide 25 mmol/L (22-29); Chloride 97 mmol/L (98-107); Globulin 4.4 g/dL (1.3-4.6); Glucose 140 mg/dL (74-106); NT Pro B Type Natriuretic Pept 11823 pg/mL (0-450); Potassium 3.6 mmol/L (3.5-5.1); Sodium 136 mmol/L (136-145); Total Bilirubin 0.6 mg/dL (0.15-1.2); Total Protein 7.2 g/dL (6.6-8.7)
[2019-05-23 02:33] LABS: Troponin(5th) Baseline 111 ng/mL (0-10)
[2019-05-23] MEDS: FUROsemide 10 mg/mL SDV 4mL 40 MG IVP ×2 (03:20→15:31)
--- NOTE | 2019-05-23 03:22 | P.HP_ITS ---
Providers/Chief Complaint Primary Care Provider: Andreas Sanabria DO Chief Complaint: CHF, NSTEMI History of Present Illness Blanka Oro is a 78 year old female who carries diagnosis of diastolic congestive heart failure with preserved ejection fraction, pacemaker, chronic PE, anticoagulation with Eliquis, oxygen dependent COPD 2 to 3 L nasal cannula [facility] because of hypoxia. Patient is not able to give me any details she is just shrugging her shoulders and not really cooperative trying to fight the BiPAP. I called [place] [facility] who told me that patient has not taken her Lasix since of this month she was seen in ER for hypoxia few days ago when she was prescribed doxycycline for possible pneumonia because of a green sputum production, lately she has been refusing all of her medications, she would not use her nasal cannula oxygen, and when she is not on oxygen she would become hypoxic and desaturates very quick. Her nurse has been noticing that she would not wear nasal cannula, she was saturating 62% last night and this morning they were not able to get her oxygen up by titrating off oxygen hence she was sent to the ER for further evaluation. Diagnostics in ER showed hypoxic respiratory failure which improved with BiPAP, she was found to have diastolic congestive heart failure exacerbation. Her troponin was 111, no EKG changes for ischemic changes however EKG showing atrial fibrillation with RVR, patient is not complaining of any chest pain at the moment. Patient is DNR/DNI as per previous records, however son called and said do intubation if we have to but do not do chest compressions Review of Systems General: Reports: other (Patient is not cooperative and not able to tell me all the details she is just shrugging her shoulders to most of my questions) Medications/Allergies Home Medications Medication Instructions Recorded Confirmed Last Taken Type Lactobacillus rhamnosus GG 1 cap PO DAILY 05/23/19 05/23/19 Unknown History [Culturelle] apixaban [Eliquis] 5 mg PO BID 05/23/19 05/23/19 Unknown History duloxetine [Cymbalta] 60 mg PO DAILY 05/23/19 05/23/19 Unknown History furosemide [Lasix] 40 mg PO BID 05/23/19 05/23/19 Unknown History lorazepam [Ativan] 0.5 mg PO TID PRN 05/23/19 05/23/19 Unknown History omeprazole 20 mg PO DAILY 05/23/19 05/23/19 Unknown History potassium chloride 20 meq PO DAILY 05/23/19 05/23/19 Unknown History sotalol 80 mg PO BID 05/23/19 05/23/19 Unknown History spironolactone 50 mg PO DAILY 05/23/19 05/23/19 Unknown History Allergies Allergy/AdvReac Type Severity Reaction Status Date / Time amitriptyline Allergy Unknown Verified 05/18/19 05:38 cephalexin [From Keflex] Allergy Unknown Verified 05/18/19 05:38 erythromycin base Allergy Unknown Verified 05/18/19 05:38 levofloxacin [From Levaquin] Allergy Unknown Verified 05/18/19 05:38 metronidazole Allergy Unknown Verified 05/18/19 05:38 Penicillins Allergy Unknown Verified 05/18/19 05:38 Sulfa (Sulfonamide Allergy Unknown Verified 05/18/19 05:38 Antibiotics) PFSH Acute PFSH: Statuses (acute, chronic, etc) shown below reflect problem list status as previously entered and may not be historically accurate Medical History (Updated 05/23/19 @ 04:07 by Lazaro Crockett MD) Abnormal breast biopsy (Acute) Acute on chronic diastolic (congestive) heart failure (Acute) Anxiety disorder, unspecified (Acute) Aortic regurgitation (Acute) Aortic stenosis (Acute) Arthritis (Acute) Atrial fibrillation (Acute) Bilateral pulmonary embolism (Acute) CAD (coronary artery disease) (Acute) Cancer (Acute) Cataract (Acute) CHF (congestive heart failure) (Acute) Chronic diastolic (congestive) heart failure (Acute) Controlled familial obstructive sleep apnea (Acute) COPD (chronic obstructive pulmonary disease) (Acute) Degenerative joint disease (Acute) Delusional disorders (Acute) Diabetes mellitus (Acute) DVT (deep venous thrombosis) (Acute) Emphysema of lung (Acute) Essential (primary) hypertension (Acute) Extended spectrum beta lactamase (ESBL) resistance (Acute) FH: mental illness (Acute) Fibromyalgia (Acute) Gastro-esophageal reflux disease without esophagitis (Acute) Gastroesophageal reflux (Acute) GI disease (Acute) Heart disease (Acute) Hyperlipemia (Acute) Hypertension (Acute) Hypokalemia (Acute) Insomnia, unspecified (Acute) halfway (current) use of anticoagulants (Acute) Lung disease (Acute) Major depressive disorder, single episode, unspecified (Acute) Neurological disease (Acute) Obstructive sleep apnea (Acute) Osteoporosis (Acute) Other muscle spasm (Acute) Other pulmonary embolism without acute cor pulmonale (Acute) Otitis media (Acute) Pacemaker (Acute) Paroxysmal atrial fibrillation (Acute) Personal history of other malignant neoplasm of bronchus and lung (Acute) Pharyngitis (Acute) Presence of cardiac pacemaker (Acute) Pulmonary embolism (Acute) Pyelonephritis (Acute) Respiratory failure (Acute) Sinus bradycardia (Acute) Sleep apnea (Acute) Surgical History (Updated 05/23/19 @ 03:18 by Martha Soto) H/O: hysterectomy (Acute) Vitals/I&O/Wt Last Vital Signs Temp 99.0 F 05/23/19 01:40 Pulse 108 H 05/23/19 02:40 Resp 22 H 05/23/19 02:40 BP 122/60 05/23/19 02:40 Pulse Ox 98 05/23/19 02:40 05/22/19 05/22/19 05/23/19 14:59 22:59 06:59 Intake Total 50 / 50 Balance 50 / 50 Weight last 48 hrs Weight 90.718 kg Physical Exam Narrative: EXAM NARRATIVE: Obese female sitting in her bed with BiPAP Clinically she looks fluid overloaded Hard to assess for JVD otherwise she has bilateral lower extremity 1+ pitting edema, bilateral crackles without adventitious sounds, she has assisted breath sounds via BiPAP No use of respiratory suspect muscles for now Variable S1-S2 Abdomen soft, nondistended, with obesity, bowel sounds present Neurologically nonfocal exam she is moving all her extremities not following my commands, she is a bit combative Her mood is irritable She is saturating well with BiPAP machine, blood pressure 120/60, she is afebrile No sign of ischemia gangrene or ulcer however she has mild hyperemic area around her left ankle without any active purulent drainage Is getting doxycycline at the bedside Data : 05/23/19 01:45 05/23/19 01:45 Micro: Microbiology 05/23/19 01:45 Blood Culture - Preliminary Blood SPECIMEN COLLECTED 05/23/19 01:45 Blood Culture - Preliminary Blood SPECIMEN COLLECTED A&P Assessment and plan (1) Acute on chronic diastolic (congestive) heart failure: Status: Acute Code(s): I50.33 - Acute on chronic diastolic (congestive) heart failure (2) Atrial fibrillation: Status: Acute Code(s): I48.91 - Unspecified atrial fibrillation (3) Hypoxia: Status: Acute Code(s): R09.02 - Hypoxemia Additional A&P Information Acute on chronic diastolic congestive heart failure due to noncompliance with medications Patient is not compliant with her oxygen and use of Lasix at the [place] [facility] which unfortunately is the likely cause of decompensated heart failure Currently her BNP is very high, clinically looks fluid overloaded I would use Lasix 40 mg twice a day same dose that she was using a [place] [facility] because she was responding well to that regimen Her last echo was done in last 6 months would not repeat it Continue spironolactone Acute on chronic hypoxic respiratory failure with above-mentioned reasons Mild pulmonary edema, fibrotic changes in right lower lobe probably aspiration pneumonitis However not able to see infiltrates on chest x-ray, she has mild leukocytosis, she is afebrile A. fib RVR I would continue her sotalol along with Eliquis I believe her high troponins are secondary to tachyarrhythmia and decompensated heart failure she is chest pain-free no ischemic changes on EKG, monitor troponin serial EKGs Bilateral PEs: Continue Eliquis Constipation: Continue bowel regimen Left lower extremity mild hyperemia No active signs of cellulitis I would continue her doxycycline for now DVT prophylaxis not indicated because of Eliquis use Patient is noncompliant with her medication at the [place] [facility], this will be a challenge to treat her chronic medical conditions and prevent readmissions Her goals of care should be readdressed because on previous admissions she was DNR and DNI son called today and said okay with intubation but no CPR Attestations Medical Necessity Statement*: Anticipating her stay to cross more than 2 midnights because of diastolic congestive heart exacerbation, noncompliance with medication, COPD exacerbation, hypoxic respiratory failure Time Spent in Patient Care: 50 Coding Level of Care Code Acute Process Laboratory Specialist for [facility] Fwd Diagnoses Acute on chronic diastolic (congestive) heart failure I50.33 Atrial fibrillation I48.91 Hypoxia R09.02
[2019-05-23] MEDS: aspirin 325 mg Tablet PO (03:31)
[2019-05-23] MEDS: nitroglycerin 1 gm/inch oint Pkt 1 INCH TOPICAL (03:31)
--- NOTE | 2019-05-23 03:31 | ECG_ITS ---
Measurements Intervals [place] Rate: 109 P: [place]: 0 QRS: -45 QRSD: 121 T: 105 QT: 350 QTc: 471 ATRIAL FIBRILLATION WITH RAPID VENTRICULAR RESPONSE LEFT ANTERIOR FASCICULAR BLOCK [QRS AXIS <= -45, QR IN I, RS IN II] MODERATE VOLTAGE CRITERIA FOR LVH, CONSIDER NORMAL VARIANT [MEETS CRITERIA IN ONE OF: R(aVL), S(V1), R(V5), R(V5/V6)+S(V1)] POSSIBLE ANTERIOR MYOCARDIAL INFARCTION , OF INDETERMINATE AGE [30 ms Q WAVE IN V3/V4, OR R < 0.2 mV IN V4] MODERATE T-WAVE ABNORMALITY, CONSIDER LATERAL ISCHEMIA [-0.1+ mV T WAVE IN I/aVL/V5/V6] Compared to ECG 05/18/2019 05:38:35 Left anterior fascicular block now present Left-axis deviation no longer present Myocardial infarct finding still present T-wave abnormality still present Possible ischemia still present Electronically Signed On 05-23-2019 15:57:49 EDUCATIONAL AID by Irineo Soni M.D. [id number]
[2019-05-23 03:42] LABS: Reflex Lactate Order REFLEX LACTIC ORDERD
--- NOTE | 2019-05-23 03:49 | PC.NURSE ---
EKG done at 0345 and shown to ER doctor.
[2019-05-23 04:03] LABS: Bilirubin Urine 1+ (NEGATIVE); Blood Urine 3+ (Negative); Glucose Urine UA Norm (Normal); Ketones Urine 1+ (Negative); Nitrate Urine Negative (Negative); Protein Urine 1+ (Negative); Specific Gravity, Urine 1.025 (1.005-1.030); Urine Appearance Hazy (CLEAR); Urine Color Dark Yellow (Yellow); pH Urine 5 (5-7)
[2019-05-23 04:04] LABS: Leukocyte Esterase Urine 1+ (Negative); RBC Urine 0-4 /hpf (0-2); Urobilinogen Urine 1 mg/dL (Negative)
[2019-05-23 04:05] LABS: Add Urine Culture? Yes; Bacteria Urine 4+; Squamous Epithelial Cell Urine 0-4 (0-5); WBC Urine 55-80 /hpf (0-5)
--- NOTE | 2019-05-23 07:31 | ECG_ITS ---
Measurements Intervals [place] Rate: 97 P: [place]: 0 QRS: -42 QRSD: 125 T: 122 QT: 397 QTc: 507 ATRIAL FIBRILLATION MARKED LEFT AXIS DEVIATION [QRS AXIS < -30] LEFT BUNDLE BRANCH BLOCK [120+ ms QRS DURATION, 80+ ms Q/S IN V1/V2, 85+ ms R IN I/aVL/V5/V6] Compared to ECG 05/18/2019 05:38:35 Left bundle-branch block now present Left ventricular hypertrophy no longer present Myocardial infarct finding no longer present T-wave abnormality no longer present Possible ischemia no longer present Electronically Signed On 05-23-2019 15:59:29 RACING DRIVER by Irineo Soni M.D. [id number]
[2019-05-23 08:09] LABS: Troponin 5 6HR 96.64 ng/L (0-10)
--- NOTE | 2019-05-23 09:52 | PC.NURSE ---
Patient changed rhythm from a-fib to a-flutter. Patient on biPAP
[2019-05-23 10:05] LABS: Lactic Acid level (Lactate) 2.5 mmol/L (0.5-2.2)
--- NOTE | 2019-05-23 14:22 | P.PN_ITS ---
Subjective Subjective: Interval history: Overnight H&P and labs reviewed. Patient was taken off of BiPAP this afternoon. Since being taken off she is continuing on 5 L/min and maintaining O2 sats of 93%. She is extremely anxious right now asking several times as to where she is and needed to be reoriented. She is calm after being talked to. Urine output is 500 cc. Medications: Reviewed: Yes Vitals/I&O/Wt Last Vital Signs Temp 98.5 F 05/23/19 10:00 Pulse 93 05/23/19 14:00 Resp 17 05/23/19 14:00 BP 124/64 05/23/19 14:00 Pulse Ox 93 05/23/19 14:00 05/22/19 05/23/19 05/23/19 22:59 06:59 14:59 Intake Total 50 / 50 Output Total 400 / 400 Balance 50 / 50 -400 / -400 Weight last 48 hrs Weight 90.718 kg Physical Exam Narrative: EXAM NARRATIVE: GEN: Awake, alert and oriented, anxious and mildly tearful CVS: S1S2 N RS: Bilateral coarse crackles all lung jones. Abd: Soft, nt/nd , bs+ UTILITY SYSTEMS REPAIRER OPERATOR: no focal neuro deficits Urinary Catheter Management^: Alfaro: Cath Placed During This Visit: no 2-way Urethral: Cath Placed During This Visit: no Data : 05/23/19 01:45 05/23/19 01:45 Micro: Microbiology 05/23/19 01:45 Blood Culture - Preliminary Blood SPECIMEN COLLECTED 05/23/19 01:45 Blood Culture - Preliminary Blood SPECIMEN COLLECTED A&P Assessment and plan (1) Acute on chronic diastolic (congestive) heart failure: Status: Acute Code(s): I50.33 - Acute on chronic diastolic (congestive) heart failure (2) Atrial fibrillation: Status: Acute Code(s): I48.91 - Unspecified atrial fibrillation (3) Hypoxia: Status: Acute Code(s): R09.02 - Hypoxemia Additional A&P Information Acute on chronic diastolic congestive heart failure due to noncompliance with medications Patient is not compliant with her oxygen and use of Lasix at the [facility] which unfortunately is the likely cause of decompensated heart failure Currently her BNP is very high, clinically looks fluid overloaded with coarse crackles on exam all over. Change Lasix to 40 mg IV twice a day Repeat echocardiogram Continue spironolactone Acute on chronic hypoxic respiratory failure due to COPD Continue Doxycycline for possible COPD exacerbation Add duonebs q4h BIpap as needed Reduce opiate frequency to every 8 hour. A. fib RVR continue her sotalol along with Eliquis Troponin leak without significant downtime no acute ST-T changes on EKG and absence of chest pain make ACS less likely. Bilateral PEs: Continue Eliquis Constipation: Continue bowel regimen DVT prophylaxis not indicated because of Eliquis use CODE STATUS: on previous admissions she was DNR and DNI son called today and said okay with intubation but no CPR Attestations Medical Necessity Statement*: Patient admitted for acute on chronic CHF exacerbation and hypoxic respiratory failure, awaiting optimization of respiratory status. Coding Level of Care Code Acute Ice Sculptor for Bety Fwarabella Diagnoses Acute on chronic diastolic (congestive) heart failure I50.33 Atrial fibrillation I48.91 Hypoxia R09.02
--- NOTE | 2019-05-23 14:26 | USCV_ITS ---
Blanka Oro Age: 78 Gender: F : 1940 Exam Date: 05/23/2019 14:53 Ordering Phys: Mary Jo Solorzano MD Technologist: Nilam Allison Exam Location: [facility] [place] Indication: ASSESS LVF. RWMA. BP: 114 / 61 HR: 98 Rhythm: Sinus Technical Quality: Adequate MEASUREMENTS (Male / Female) Normal Values 2D ECHO LV Diastolic Diameter PLAX 4.7 cm 4.2 - 5.9 / 3.9 - 5.3 cm LV Systolic Diameter PLAX 3.2 cm LV Chamber Size 3.0 cm IVS Diastolic Thickness 1.5 cm 0.6 - 1.0 / 0.6 - 0.9 cm IVS Systolic Thickness 1.9 cm LVPW Diastolic Thickness 1.5 cm 0.6 - 1.0 / 0.6 - 0.9 cm LVPW Systolic Thickness 1.9 cm RV Chamber Size 3.7 cm LVOT Diameter 2.1 cm LV Ejection Fraction 2D Teich 59.5 % LV Ejection Fraction MOD 2C 64.2 % LV Ejection Fraction 2C AL 62.8 % LA Diameter 3.6 cm LA Width 2.6 cm LA Height 3.7 cm RA Width 2.7 cm RA Height 3.6 cm Aorta at Sinotubular Diameter 3.6 cm M-MODE LV Diastolic Diameter MM 3.6 cm 4.2 - 5.9 / 3.9 - 5.3 cm LV Systolic Diameter MM 1.9 cm LV Ejection Fraction MM Teich 77.9 % IVS Diastolic Thickness MM 1.3 cm 0.6 - 1.0 / 0.6 - 0.9 cm IVS Systolic Thickness MM 1.7 cm LVPW Diastolic Thickness MM 1.3 cm 0.6 - 1.0 / 0.6 - 0.9 cm LVPW Systolic Thickness MM 1.8 cm RV Diastolic Diameter MM 1.9 cm Aortic Annulus Diameter 3.5 cm LA Ao Ratio MM 1.1 MV E Point Septal Separation 0.4 cm DOPPLER AV Peak Velocity 196.0 cm/s LVOT Peak Velocity 179.0 cm/s AV Area Cont Eq vti 3.4 cm squared AV Area Cont Eq pk 3.0 cm squared MV Area PHT 3.9 cm squared Mitral E to A Ratio 3.0 MV E' Velocity 10.0 cm/s Mitral E to MV E' Ratio 14.0 Mitral E to LV E' Lateral Ratio 12.5 Mitral E to LV E' Septal Ratio 15.9 TR Peak Velocity 264.9 cm/s TR Peak Gradient 28.1 mmHg TR Mean Velocity 152.5 cm/s TR Mean Gradient 12.0 mmHg TR Velocity Time Integral 50.8 cm TV Peak E Velocity 73.0 cm/s Right Atrial Pressure 3.0 mmHg Pulmonary Artery Systolic Pressu 31.1 mmHg PV Peak Velocity 61.0 cm/s RV Acceleration Time 0.1 s RV Ejection Time 0.3 s RV AcT/ET 0.4 FINDINGS Left Ventricle Normal left ventricular size and systolic function, EF 56 %. Mild left ventricular hypertrophy. No regional wall motion abnormalities. Right Ventricle Possibly of normal size and ejection fraction Right Atrium Possibly of normal size Left Atrium Possibly of normal size Mitral Valve Mitral valve not well visualized. Aortic Valve Thickened aortic valve. [id number] aortic valve regurgitation. Aortic valve sclerosis. Tricuspid Valve Trace tricuspid valve regurgitation. Pulmonic Valve Pulmonic valve not well visualized. Pericardium No pericardial effusion. Aorta Normal aortic annulus size. CONCLUSIONS Normal left ventricular size and systolic function, EF 56 %. Mild left ventricular hypertrophy. No regional wall motion abnormalities. Aloi-sz-bxjiwatw aortic valve regurgitation. Aortic valve sclerosis. Trace tricuspid valve regurgitation. Estimated pulmonary artery peak systolic pressure of 31 mmHg There is no pericardial effusion. No previous study is available for comparison. Technically difficult study because of the poor ultrasonic window. Dr Con Mondragon MD FACC (Electronically Signed) Final Date: 23 May 2019 18:50 S
[2019-05-23] MEDS: duloxetine 60 mg Capsule PO (15:31)
[2019-05-23] MEDS: spironolactone 25 mg Tablet 50 MG PO (15:31)
[2019-05-23] MEDS: pantoprazole DR 40 mg Tablet PO (15:32)
[2019-05-23] MEDS: LORazepam 0.5 mg Tablet PO ×2 (15:54→20:54)
[2019-05-23] MEDS: HYDROcodone-acetaminophen 5-325 mg Tablet 1 TAB PO ×2 (15:54→20:21)
[2019-05-23] MEDS: ipratropium-albuterol 3 mL Neb INHALATION (19:43)
--- NOTE | 2019-05-23 19:53 | PC.NURSE ---
Pt moved from room 6 to room 5. Pt distraught, crying and yelling out, states she wants to see people. Pt making confused statements, and stating her right arm hurts. Pt transferred from chair to bed, with 1 assist.
[2019-05-23] MEDS: doxycycline 100 mg Tablet PO (20:20)
[2019-05-23] MEDS: apixaban 5 mg Tablet PO (20:20)
[2019-05-23] MEDS: sotalol 80 mg Tablet PO (20:20)
[2019-05-24] VITALS (28 sets, daily range): BP systolic 93–136; BP diastolic 51–90; PULSE 71–98; RESP 14–29; TEMP 36.3–37.1; O2SAT 75–99
[2019-05-24] MEDS: acetaminophen 325 mg Tablet 650 MG PO (01:46)
[2019-05-24 04:22] LABS: Basophils % 0.1 %; Hematocrit 35.4 % (37.0-47.0); Hemoglobin 11.1 g/dL (11.5-15.3); Lymphocytes # 1.3 10^3/uL (0.8-4.8); Lymphocytes % 9.1 %; Mean Corpuscular HGB Conc 31.4 g/dL (30.0-36.0); Mean Corpuscular Hemoglobin 27.5 pg (28.0-34.0); Mean Corpuscular Volume 87.8 fL (81-99); Monocytes # 1.2 10^3/uL (0.2-0.9); Monocytes % 8.1 %; Neutrophils % 81.9 %; Nucleated Red Blood Cells % 0 %; Platelet Count 231 10^3/cmm (130-400); Red Blood Count 4.03 10^6/uL (4.1-5.3); Red Cell Distribution Width 16.4 % (12.1-15.1); White Blood Count 14.7 10^3/uL (4.0-10.0)
[2019-05-24 04:36] LABS: Blood Urea Nitrogen 29 mg/dL (8-23); Calcium 8.8 mg/dL (8.5-10.5); Carbon Dioxide 27 mmol/L (22-29); Chloride 100 mmol/L (98-107); Glucose 134 mg/dL (74-106); Osmolality Calculated 287 mOsm/kg (285-295); Sodium 139 mmol/L (136-145)
[2019-05-24] MEDS: FUROsemide 10 mg/mL SDV 4mL 40 MG IVP (05:28)
[2019-05-24] MEDS: HYDROcodone-acetaminophen 5-325 mg Tablet 1 TAB PO (06:42)
[2019-05-24] MEDS: duloxetine 60 mg Capsule PO (08:50)
[2019-05-24] MEDS: sotalol 80 mg Tablet PO ×2 (08:50→18:27)
[2019-05-24] MEDS: doxycycline 100 mg Tablet PO (08:50)
[2019-05-24] MEDS: apixaban 5 mg Tablet PO ×2 (08:50→18:27)
[2019-05-24] MEDS: spironolactone 25 mg Tablet 50 MG PO (08:51)
[2019-05-24] MEDS: pantoprazole DR 40 mg Tablet PO (08:51)
--- NOTE | 2019-05-24 12:39 | P.PN_ITS ---
Subjective Subjective: Interval history: Reports feeling unwell saying her colon is bothering her. She is referring to hemorrhoids. Urine output 650ml. Intermittent bipap use yesterday and overnight. cr at 1.3, baseline Medications: Reviewed: Yes Vitals/I&O/Wt Last Vital Signs Temp 97.4 F L 05/24/19 05:00 Pulse 77 05/24/19 12:00 Resp 18 05/24/19 12:00 BP 109/70 05/24/19 12:00 Pulse Ox 99 05/24/19 12:00 05/23/19 05/24/19 05/24/19 22:59 06:59 14:59 Intake Total 675 / 675 400 / 1075 600 / 600 Output Total 300 / 700 350 / 1050 Balance 375 / -25 50 / 25 600 / 600 Weight last 48 hrs Weight 90.718 kg Physical Exam Narrative: EXAM NARRATIVE: GEN: Awake, alert and oriented, anxious and mildly tearful CVS: S1S2 N RS: Bilateral coarse crackles all lung jones. 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: no focal neuro deficits Urinary Catheter Management^: Pretty: Cath Placed During This Visit: no 2-way Urethral: Cath Placed During This Visit: no Data : 05/24/19 03:39 05/24/19 03:39 Micro: Microbiology 05/23/19 01:45 Blood Culture - Preliminary Blood NEGATIVE TO DATE 05/23/19 01:45 Blood Culture - Preliminary Blood NEGATIVE TO DATE A&P Assessment and plan (1) Acute on chronic diastolic (congestive) heart failure: Status: Acute Code(s): I50.33 - Acute on chronic diastolic (congestive) heart failure (2) Atrial fibrillation: Status: Acute Code(s): I48.91 - Unspecified atrial fibrillation (3) Hypoxia: Status: Acute Code(s): R09.02 - Hypoxemia Additional A&P Information Acute on chronic diastolic congestive heart failure due to noncompliance with medications Patient is not compliant with her oxygen and use of Lasix at the [facility] which unfortunately is the likely cause of decompensated heart failure Currently her BNP is very high, clinically looks fluid overloaded with coarse crackles on exam all over. increase Lasix to 60 mg IV twice a day today. Will likely need adjustment after renal function monitoring tomorrow. Continue spironolactone Acute on chronic hypoxic respiratory failure due to COPD Leukocytosis trending up LLL possible density on CXR will get CT w/o contrast to get better picture cannot r/o CAP vs aspiration PNA UA with 55-80 wbc, taken prior to pretty insertion. GNR 70-80K on cx. Previous cx with ESBL E.coli. d/c doxy as was on it at [place] without change in symptoms. LEss lkely atypical PNA if she has been on doxy start primaxin 500mg iv q6h- renally adjust per pharmacy Allergies reviewed- she has previously tolerated ceftriaxone, imipenem and ertapenem without issues A. fib RVR continue her sotalol along with Eliquis Troponin leak without significant downtime no acute ST-T changes on EKG and absence of chest pain make ACS less likely. Bilateral PEs: Continue Eliquis Constipation: Continue bowel regimen. preparation H rectally for hemorrhoids DVT prophylaxis not indicated because of Eliquis use CODE STATUS: on previous admissions she was DNR and DNI son called today and said okay with intubation but no CPR Attestations Medical Necessity Statement*: optimization of respiratory status, worsening leukocytosis, evaluating for infection Coding Level of Care Code Acute Manager Speech for Chg Fwd Diagnoses Acute on chronic diastolic (congestive) heart failure I50.33 Atrial fibrillation I48.91 Hypoxia R09.02
--- NOTE | 2019-05-24 12:41 | CTR_ITS ---
PROCEDURE INFORMATION: Exam: CT Chest Without Contrast Exam date and time: 05/24/2019 12:56 PM Age: 78 years old Clinical indication: Shortness of breath; Additional info: Pneumonia TECHNIQUE: Imaging protocol: Computed tomography of the chest without contrast. Total DLP: 641.37 mGy-cm Radiation optimization: All CT scans at this facility use at least one of these dose optimization techniques: automated exposure control; mA and/or kV adjustment per patient size (includes targeted exams where dose is matched to clinical indication); or iterative reconstruction. COMPARISON: CT Chest/Abdomen/Pelvis wo IV 08/27/2017 9:20 AM [facility] Chest[place]ulmonary [place] [id number] 11/25/2018 8:17:04 PM FINDINGS: Lungs: Calcified granulomas are present in both lungs in keeping with old granulomatous disease. Findings of partial right lower lobectomy are unchanged. Mild chronic interstitial changes are present in both lungs. No acute infiltrates are identified. Study somewhat limited due to respiratory motion at the lung bases. 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 Heart: Unremarkable. No cardiomegaly. No pericardial effusion. Aorta: Unremarkable. No aortic aneurysm. Lymph nodes: There are calcified hilar and mediastinal lymph nodes in keeping with old granulomatous disease. Liver: There is a diffuse decrease in hepatic parenchymal density, consistent with fatty change. Bones/joints: Chronic compression fractures in the upper lumbar spine are again identified. There has been increase in the amount of compression at L2 since 11/25/2018. Soft tissues: Unremarkable. CT/CT chest wo con [id number] IMPRESSION: 1. Stable postoperative findings. No acute infiltrate. 2. Fatty liver 3. Chronic appearing compression fractures with increase in the compression at L2. Radiation Dose CTDIVOL = (mGy): DLP = 641.37 (mGy-cm)
[2019-05-24] MEDS: FUROsemide 10 mg/mL SDV 4mL 60 MG IVP (14:32)
[2019-05-24] MEDS: phenyleph-mineral oil-petrolat Oint 28 gm 1 APPLIC PR ×2 (15:02→22:22)
--- NOTE | 2019-05-24 15:23 | PC.CHAP ---
Pastoral Care Encounter/Spiritual Assessment Type of Contact [] Declined manager willow visit [] Patient/Family/Request visit [] Outpatient visit [] Follow-up visit [] Physician referral [] Code/Alert [x] Routine visit [] Staff referral [] Actively dying [] Patient sleeping [] Family support [] [] Out of room [] Palliative care [] [] Receiving care in room [] Pre-surgical visit [] Trauma [] Long length of stay [] ICU visit [] Other: Relational/Emotional Strength [] Patient feels connected with others/family/visitors/staff [] Distress [] Loneliness/isolation [] Abandonment Spirituality of Patient [] Person of Moraima [] Attends Protestant of their Moraima [] Believes in Prayer [] Reads Bible or Scientology materials [] There are Spiritual issues to be addressed Developer Architect Interventions [] Prayer [] Active listening [] Non-anxious presence [] Spiritual/emotional support [] Crisis/trauma care [] Spiritual counseling [] Bereavement support [] Provided bereavement packet [] Provided Bible/devotional materials [] Provided toy/stuffed animal, coloring book to patient or family member [] Provided Communion [] Anointing/[place] [] Salvation [] Completed spiritual assessment [] Other: Impact on Illness or Injury [] Angry [] Fearful [] Anxious [] Often cries [] Exhaustion [] Unable to work [] Unable to attend sabianist [] Unable to walk/stand [] Unable to read [] Unable to drive [] Unable to eat/drink [] Unable to sleep [] Unable to be with family [] Patient intubated [] Other: Summary Time spent with patient
[2019-05-24] MEDS: LORazepam 0.5 mg Tablet PO (22:22)
[2019-05-25] VITALS (31 sets, daily range): BP systolic 72–128; BP diastolic 41–86; PULSE 69–110; RESP 14–29; TEMP 36.3–36.8; O2SAT 88–100
[2019-05-25] MEDS: FUROsemide 10 mg/mL SDV 4mL 60 MG IVP (03:08)
[2019-05-25] MEDS: HYDROcodone-acetaminophen 5-325 mg Tablet 1 TAB PO ×2 (03:11→20:22)
[2019-05-25 04:59] LABS: Basophils % 0.1 %; Hemoglobin 11.7 g/dL (11.5-15.3); Mean Corpuscular HGB Conc 30.8 g/dL (30.0-36.0); Mean Corpuscular Hemoglobin 27.6 pg (28.0-34.0); Mean Corpuscular Volume 89.6 fL (81-99); Mean Platelet Volume 11.3 fL (7.4-10.4); Monocytes % 4.2 %; Neutrophils # 22.4 10^3/uL (1.8-7.7); Neutrophils % 90.4 %; Nucleated Red Blood Cells % 0 %; Platelet Count 239 10^3/cmm (130-400); Red Blood Count 4.24 10^6/uL (4.1-5.3); Red Cell Distribution Width 16.2 % (12.1-15.1); White Blood Count 24.8 10^3/uL (4.0-10.0)
[2019-05-25 05:36] LABS: Alanine Aminotransferase 9 U/L (0-33); Albumin Level 2.4 g/dL (3.5-5.2); Alkaline Phosphatase 80 IU/L (35-105); Aspartate Amino Transferase 19 U/L (0-32); Blood Urea Nitrogen 33 mg/dL (8-23); Calcium 8.9 mg/dL (8.5-10.5); Carbon Dioxide 28 mmol/L (22-29); Chloride 98 mmol/L (98-107); Globulin 4.1 g/dL (1.3-4.6); Glucose 139 mg/dL (74-106); Sodium 140 mmol/L (136-145); Total Bilirubin 0.5 mg/dL (0.15-1.2); Total Protein 6.5 g/dL (6.6-8.7)
--- NOTE | 2019-05-25 07:36 | P.PN_ITS ---
Subjective Subjective: Interval history: Patient reports significant greenish/yellowish productive cough. She denies chest pain and reports that her breathing is overall unchanged. She is alert and oriented to self and place. She was diuresed yesterday approximately 1500 mL out. She denies abdominal pain. She appears somewhat confused and as per overnight RN this is has been gradually progressing since admission. She was supported with BiPAP overnight. She was started yesterday on Primaxin and her white blood cell count further worsened and up to 24 this morning. I currently do not see Primaxin on the med list therefore restarted this morning. There is no report of diarrhea per RN and patient does have history of C. difficile diarrhea previously. CT scan was obtained yesterday showing no evidence of pneumonia. She is constantly screaming for help which she was doing throughout her admission as per RN. Vitals/I&O/Wt Last Vital Signs Temp 98.0 F 05/24/19 22:30 Pulse 78 05/25/19 06:00 Resp 28 H 05/25/19 06:00 BP 114/61 05/25/19 06:00 Pulse Ox 93 05/25/19 06:00 05/24/19 05/25/19 05/25/19 22:59 06:59 14:59 Intake Total 100 / 700 200 / 900 Output Total 2100 / 2100 750 / 2850 Balance -2000 / -1400 -550 / -1950 Physical Exam Const: COMMON NORMALS: no apparent distress GENERAL APPEARANCE: ill appearing ORIENTATION/CONSCIOUSNESS: Yes oriented to person, Yes oriented to place and Yes confused HENMT: FACE & SINUS: normal facial exam MOUTH: tongue normal Resp: COMMON NORMALS: clear to auscultation bilaterally EFFORT & INSPECTION: No able to speak in complete sentences and Yes uses accessory muscles AUSCULTATION: clear to auscultation bilaterally and diminished lung sounds Cardio: COMMON NORMALS: regular rhythm RHYTHM: regular rhythm PERIPHERAL PULSES: radial pulses present GI: COMMON NORMALS: soft to palpation INSPECTION: Yes normal to inspection and No abdominal wall edema AUSCULTATION: Yes normoactive bowel sounds PALPATION: Yes soft, No guarding and No rigid : BLADDER/KIDNEY EXAM: Yes catheter in place Neuro: COMMON NORMALS: moves all extremities SENSORIUM/ORIENTATION: Yes oriented to person and Yes oriented to place Skin: OTHER: Minimal left lower extremity skin abrasion covered with OptiForm. No evidence of infection. Urinary Catheter Management^: Pretty: Cath Placed During This Visit: no 2-way Urethral: Cath Placed During This Visit: no Data : 05/25/19 04:28 05/25/19 04:28 Micro: Microbiology 05/23/19 03:30 Urine Culture - Preliminary Urine,Clean Catch Gram Negative Rods 05/23/19 01:45 Blood Culture - Preliminary Blood NEGATIVE TO DATE 05/23/19 01:45 Blood Culture - Preliminary Blood NEGATIVE TO DATE A&P Assessment and plan (1) Acute on chronic diastolic (congestive) heart failure: Status: Acute Code(s): I50.33 - Acute on chronic diastolic (congestive) heart failure (2) Atrial fibrillation: Status: Acute Code(s): I48.91 - Unspecified atrial fibrillation (3) Hypoxia: Status: Acute Code(s): R09.02 - Hypoxemia (4) Acute bronchitis: Status: Acute Code(s): J20.9 - Acute bronchitis, unspecified Additional A&P Information Acute on chronic diastolic congestive heart failure due to noncompliance with medications Acute on chronic hypoxic respiratory failure due to COPD Leukocytosis trending up No evidence of pneumonia on CT UA with 55-80 wbc, taken prior to pretty insertion. GNR 70-80K on cx. Previous cx with ESBL E.coli. d/c doxy as was on it at [place] without change in symptoms. LEss lkely atypical PNA if she has been on doxy start primaxin 500mg iv q6h- renally adjust per pharmacy Allergies reviewed- she has previously tolerated ceftriaxone, imipenem and ertapenem without issues A. fib RVR continue her sotalol along with Eliquis Troponin leak without significant downtime no acute ST-T changes on EKG and absence of chest pain make ACS less likely. Bilateral PEs: Continue Eliquis Constipation: Continue bowel regimen. preparation H rectally for hemorrhoids PLAN: Continue current monitoring and treatment but change Lasix to once daily. Monitor closely for diarrhea and check for C. difficile if happens. Obtain sputum Gram stain and culture. Awaiting urine culture result. DVT prophylaxis not indicated because of Eliquis use CODE STATUS: on previous admissions she was DNR and DNI son called today and said okay with intubation but no CPR Attestations Medical Necessity Statement*: Given significant leukocytosis and some confusi on patient will require further hospitalization with close ICU monitoring and treatment due to high risk of deterioration. Coding Level of Care Code Acute Glass Vial Filler for Chg Fwd Exam Problem Focused Diagnoses Acute on chronic diastolic (congestive) heart failure I50.33 Atrial fibrillation I48.91 Hypoxia R09.02 Acute bronchitis J20.9
[2019-05-25] MEDS: FUROsemide 10 mg/mL SDV 10mL 60 MG IVP (09:50)
[2019-05-25] MEDS: spironolactone 25 mg Tablet 50 MG PO (09:51)
[2019-05-25] MEDS: sotalol 80 mg Tablet PO ×2 (09:51→17:42)
[2019-05-25] MEDS: apixaban 5 mg Tablet PO ×2 (09:51→17:43)
[2019-05-25] MEDS: pantoprazole DR 40 mg Tablet PO (09:51)
[2019-05-25] MEDS: duloxetine 60 mg Capsule PO (09:51)
[2019-05-25] MEDS: phenyleph-mineral oil-petrolat Oint 28 gm 1 APPLIC PR ×2 (10:05→20:22)
--- NOTE | 2019-05-25 11:47 | PC.CHAP ---
Pastoral Care Encounter/Spiritual Assessment Type of Contact [] Declined emergency room technician visit [] Patient/Family/Request visit [] Outpatient visit [] Follow-up visit [] Physician referral [] Code/Alert [] Routine visit [] Staff referral [] Actively dying [] Patient sleeping [] Family support [] [] Out of room [] Palliative care [] [x] Receiving care in room [] Pre-surgical visit [] Trauma [] Long length of stay [] ICU visit [] Other: Relational/Emotional Strength [] Patient feels connected with others/family/visitors/staff [] Distress [] Loneliness/isolation [] Abandonment Spirituality of Patient [] Person of Moraima [] Attends Rastafarian of their Moraima [] Believes in Prayer [] Reads Bible or Hinduism materials [] There are Spiritual issues to be addressed Diagnostic Tech Interventions [] Prayer [] Active listening [] Non-anxious presence [] Spiritual/emotional support [] Crisis/trauma care [] Spiritual counseling [] Bereavement support [] Provided bereavement packet [] Provided Bible/devotional materials [] Provided toy/stuffed animal, coloring book to patient or family member [] Provided Communion [] Anointing/[place] [] Salvation [] Completed spiritual assessment [] Other: Impact on Illness or Injury [] Angry [] Fearful [] Anxious [] Often cries [] Exhaustion [] Unable to work [] Unable to attend pentecostal [] Unable to walk/stand [] Unable to read [] Unable to drive [] Unable to eat/drink [] Unable to sleep [] Unable to be with family [] Patient intubated [x] Other: pt. not very cooperative. Summary staff advised Diagnostic Tech not to bother pt. She was not very cooperative , will need a follow up visit. Time spent with patient 5 min.
[2019-05-25] MEDS: acetaminophen 325 mg Tablet 650 MG PO (12:18)
[2019-05-25] MEDS: LORazepam 0.5 mg Tablet PO (12:19)
--- NOTE | 2019-05-25 13:00 | PC.NURSE ---
Pt has refused breakfast and lunch. It required an extensive amount of cajoling and 3 hours off and on to get her to take her am PO meds. She refused the potassium tablets.
--- NOTE | 2019-05-25 19:35 | PC.NURSE ---
Pt confused. She has yelled out throughout the day ( but less after Ativan)Very difficult to get her to take her medications. It took nearly 3 hours to get the am Po meds in. She complained of not feeling good and hurting after lunch , was able to get her to take acetaminophen and Ativan, as she had also indicated she was anxious. She took a nap this afternoon. It was easier this evening to get her to take the Eliquis and Sotalol. She only ate 3 bites of dinner. Not ate the rest of the day. She incontinent of stool smears throughout the day but denied needing to sit on toilet. She is positive for ESBL in urine, she is already on Primaxin. Contact precautions were started.
[2019-05-26] VITALS (27 sets, daily range): BP systolic 102–145; BP diastolic 50–96; PULSE 60–87; RESP 14–29; TEMP 36.5–37.7; O2SAT 89–99
--- NOTE | 2019-05-26 02:00 | PC.PHAR ---
RENAL DOSING FOR PRIMAXIN, DECREASED TO 250MG Q6H FROM 500MG DUE TO CRCL OF 37.293
--- NOTE | 2019-05-26 07:44 | PM.PN ---
Subjective Subjective: Interval history: Patient reports feeling better this morning. She is somewhat lethargic this morning. She required BiPAP throughout the night. She denies shortness of breath or chest pain this morning. She had approximately 500 mL of urinary output overnight and it is getting darker. She is not eating much. Her urine came back with ESBL E. coli. Vitals are stable. We do not have lab work this morning. Medications: Reviewed: Yes Vitals/I&O/Wt Last Vital Signs Temp 97.7 F 05/26/19 06:00 Pulse 61 05/26/19 07:29 Resp 16 05/26/19 07:29 BP 130/78 05/26/19 06:00 Pulse Ox 97 05/26/19 07:29 05/25/19 05/26/19 05/26/19 22:59 06:59 14:59 Intake Total 450 / 970 100 / 1070 Output Total 1000 / 1025 500 / 1525 Balance -550 / -55 -400 / -455 Physical Exam Const: COMMON NORMALS: no apparent distress GENERAL APPEARANCE: ill appearing ORIENTATION/CONSCIOUSNESS: Yes oriented to person, Yes oriented to place and Yes confused HENMT: FACE & SINUS: normal facial exam MOUTH: tongue normal Resp: COMMON NORMALS: clear to auscultation bilaterally EFFORT & INSPECTION: No able to speak in complete sentences and Yes uses accessory muscles AUSCULTATION: clear to auscultation bilaterally and diminished lung sounds Cardio: COMMON NORMALS: regular rhythm RHYTHM: regular rhythm PERIPHERAL PULSES: radial pulses present GI: COMMON NORMALS: soft to palpation INSPECTION: Yes normal to inspection AUSCULTATION: Yes normoactive bowel sounds PALPATION: Yes soft, No guarding and No rigid : BLADDER/KIDNEY EXAM: Yes catheter in place Neuro: COMMON NORMALS: moves all extremities SENSORIUM/ORIENTATION: Yes oriented to person and Yes oriented to place Skin: OTHER: Minimal left lower extremity skin abrasion covered with OptiForm. No evidence of infection. Urinary Catheter Management^: Alfaro: Cath Placed During This Visit: no 2-way Urethral: Cath Placed During This Visit: no Data : 05/25/19 04:28 05/25/19 04:28 Micro: Microbiology 05/23/19 03:30 Urine Culture - Final Urine,Clean Catch Escherichia coli esbl A&P Assessment and plan (1) Acute on chronic diastolic (congestive) heart failure: Status: Acute Code(s): I50.33 - Acute on chronic diastolic (congestive) heart failure (2) Atrial fibrillation: Status: Acute Code(s): I48.91 - Unspecified atrial fibrillation (3) Hypoxia: Status: Acute Code(s): R09.02 - Hypoxemia (4) Acute bronchitis: Status: Acute Code(s): J20.9 - Acute bronchitis, unspecified (5) UTI due to extended-spectrum beta lactamase (ESBL) producing Escherichia coli: Status: Acute Code(s): N39.0 - Urinary tract infection, site not specified; B96.29 - Other Escherichia coli [E. coli] as the cause of diseases classified elsewhere; Z16.12 - Extended spectrum beta lactamase (ESBL) resistance Additional A&P Information Acute on chronic diastolic congestive heart failure due to noncompliance with medications Acute on chronic hypoxic respiratory failure due to COPD Leukocytosis trending up No evidence of pneumonia on CT Allergies reviewed- she has previously tolerated ceftriaxone, imipenem and ertapenem without issues A. fib RVR continue her sotalol along with Eliquis Troponin leak without significant downtime no acute ST-T changes on EKG and absence of chest pain make ACS less likely. Bilateral PEs: Continue Eliquis Constipation: Continue bowel regimen. preparation H rectally for hemorrhoids PLAN: Continue current monitoring and treatment Awaiting labs this morning. Encouraged oral intake. Will request physical therapy. Will monitor patient in ICU for 1 more day as I would like to see her with improved oral intake and more alert and if remains stable we will be able to transfer her to medical [facility]. DVT prophylaxis not indicated because of Eliquis use CODE STATUS: on previous admissions she was DNR and DNI son called today and said okay with intubation but no CPR Attestations Medical Necessity Statement*: Patient with UTI as well as lethargic state and some mild underlying confusion which is likely her baseline requires close ICU monitoring and treatment until deemed safe for transfer. Patient is high risk for deterioration. 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
[2019-05-26 09:08] LABS: Basophils % 0.1 %; Eosinophils % 0.1 %; Hematocrit 41.9 % (37.0-47.0); Hemoglobin 12.9 g/dL (11.5-15.3); Mean Corpuscular HGB Conc 30.8 g/dL (30.0-36.0); Mean Corpuscular Hemoglobin 26.7 pg (28.0-34.0); Mean Corpuscular Volume 86.6 fL (81-99); Mean Platelet Volume 11.3 fL (7.4-10.4); Monocytes # 0.8 10^3/uL (0.2-0.9); Monocytes % 4.7 %; Neutrophils # 15.2 10^3/uL (1.8-7.7); Neutrophils % 88.2 %; Nucleated Red Blood Cells % 0.2 %; Platelet Count 283 10^3/cmm (130-400); Red Blood Count 4.84 10^6/uL (4.1-5.3); Red Cell Distribution Width 15.9 % (12.1-15.1); White Blood Count 17.2 10^3/uL (4.0-10.0)
[2019-05-26 09:25] LABS: Alanine Aminotransferase 8 U/L (0-33); Albumin Level 2.5 g/dL (3.5-5.2); Alkaline Phosphatase 84 IU/L (35-105); Anion Gap 16.6 (5-19); Aspartate Amino Transferase 19 U/L (0-32); Blood Urea Nitrogen 34 mg/dL (8-23); Calcium 9.6 mg/dL (8.5-10.5); Carbon Dioxide 34 mmol/L (22-29); Chloride 94 mmol/L (98-107); Globulin 4.9 g/dL (1.3-4.6); Glucose 124 mg/dL (74-106); Potassium 3.6 mmol/L (3.5-5.1); Sodium 141 mmol/L (136-145); Total Bilirubin 0.6 mg/dL (0.15-1.2); Total Protein 7.4 g/dL (6.6-8.7)
[2019-05-26] MEDS: FUROsemide 10 mg/mL SDV 10mL 60 MG IVP (09:27)
[2019-05-26] MEDS: apixaban 5 mg Tablet PO (09:30)
[2019-05-26] MEDS: sotalol 80 mg Tablet PO (09:30)
[2019-05-26] MEDS: pantoprazole DR 40 mg Tablet PO (09:30)
[2019-05-26] MEDS: spironolactone 25 mg Tablet 50 MG PO (09:30)
[2019-05-26] MEDS: duloxetine 60 mg Capsule PO (09:32)
[2019-05-26] MEDS: HYDROcodone-acetaminophen 5-325 mg Tablet 1 TAB PO (09:32)
[2019-05-26] MEDS: phenyleph-mineral oil-petrolat Oint 28 gm 1 APPLIC PR ×3 (10:27→22:18)
--- NOTE | 2019-05-26 11:03 | PC.CHAP ---
Pastoral Care Encounter/Spiritual Assessment Type of Contact [] Declined chain mender visit [] Patient/Family/Request visit [] Outpatient visit [x] Follow-up visit [] Physician referral [] Code/Alert [] Routine visit [] Staff referral [] Actively dying [] Patient sleeping [] Family support [] [] Out of room [] Palliative care [] [] Receiving care in room [] Pre-surgical visit [] Trauma [] Long length of stay [x] ICU visit [] Other: Precautions Relational/Emotional Strength [] Patient feels connected with others/family/visitors/staff [] Distress [] Loneliness/isolation [] Abandonment Spirituality of Patient [] Person of Moraima [] Attends Yarsanism of their Moraima [] Believes in Prayer [] Reads Bible or Uatsdin materials [] There are Spiritual issues to be addressed Air Sampler Interventions [] Prayer [] Active listening [] Non-anxious presence [] Spiritual/emotional support [] Crisis/trauma care [] Spiritual counseling [] Bereavement support [] Provided bereavement packet [] Provided Bible/devotional materials [] Provided toy/stuffed animal, coloring book to patient or family member [] Provided Communion [] Anointing/[place] [] Salvation [] Completed spiritual assessment [] Other: Impact on Illness or Injury [] Angry [] Fearful [] Anxious [] Often cries [] Exhaustion [] Unable to work [] Unable to attend restorationism [] Unable to walk/stand [] Unable to read [] Unable to drive [] Unable to eat/drink [] Unable to sleep [] Unable to be with family [] Patient intubated [] Other: Summary Patient was under precautions at the time of visit. Visit attempted by Air Sampler Wili Kumari. Time spent with patient 3 minutes
--- NOTE | 2019-05-26 14:31 | PC.SOCIAL ---
Pg 2 of IMM Pg 2 of IMM was explained to patient's son, Norbert, via phone. He verbalized understanding and had no questions. Left copy for him in patient's room.
--- NOTE | 2019-05-26 17:30 | PC.NURSE ---
THIS NURSE ATTEMPTED TO FEED PATIENT. PATIENT REFUSING TO EAT ANY DINNER AT THIS TIME. PATIENT IS ALSO REFUSING TO DRINK. OMAR COTE
[2019-05-27] VITALS (26 sets, daily range): BP systolic 99–155; BP diastolic 43–105; PULSE 67–94; RESP 14–22; TEMP 36.3–37.2; O2SAT 89–98
[2019-05-27] MEDS: HYDROcodone-acetaminophen 5-325 mg Tablet 1 TAB PO (01:38)
[2019-05-27 04:03] LABS: Basophils % 0.1 %; Eosinophils % 0.1 %; Hematocrit 39.7 % (37.0-47.0); Hemoglobin 12.2 g/dL (11.5-15.3); Lymphocytes # 1.2 10^3/uL (0.8-4.8); Lymphocytes % 8.3 %; Mean Corpuscular HGB Conc 30.7 g/dL (30.0-36.0); Mean Corpuscular Hemoglobin 26.5 pg (28.0-34.0); Mean Corpuscular Volume 86.1 fL (81-99); Mean Platelet Volume 10.9 fL (7.4-10.4); Monocytes % 6.9 %; Neutrophils # 12.2 10^3/uL (1.8-7.7); Neutrophils % 83.7 %; Nucleated Red Blood Cells % 0 %; Platelet Count 301 10^3/cmm (130-400); Red Blood Count 4.61 10^6/uL (4.1-5.3); Red Cell Distribution Width 15.9 % (12.1-15.1); White Blood Count 14.6 10^3/uL (4.0-10.0)
[2019-05-27 04:26] LABS: Alanine Aminotransferase < 5 U/L (0-33); Albumin Level 2.4 g/dL (3.5-5.2); Alkaline Phosphatase 72 IU/L (35-105); Anion Gap 16.1 (5-19); Aspartate Amino Transferase 14 U/L (0-32); Blood Urea Nitrogen 33 mg/dL (8-23); Calcium 9.1 mg/dL (8.5-10.5); Carbon Dioxide 35 mmol/L (22-29); Chloride 98 mmol/L (98-107); Globulin 4.4 g/dL (1.3-4.6); Glucose 137 mg/dL (74-106); Potassium 3.1 mmol/L (3.5-5.1); Sodium 146 mmol/L (136-145); Total Bilirubin 0.5 mg/dL (0.15-1.2); Total Protein 6.8 g/dL (6.6-8.7)
--- NOTE | 2019-05-27 06:47 | PC.NURSE ---
SHIFT SUMMARY PT HAS BEEN CONFUSED. YELLING OUT OFF AND ON, INTERMEDIATE CONFIRMED THAT IS NORMAL . PT HAS BEEN TURNED PERIODICALLY. PT IV REMAINS PATENT. PT HAS HAD ADEQUATE URINE OUTPUT.
--- NOTE | 2019-05-27 07:07 | PM.PN ---
Subjective Subjective: Interval history: Patient is somnolent and somewhat confused this morning. Moves all extremities. Denies any pain. White blood cell count is coming down. Vitals are stable. Patient was deemed non-rehabable yesterday. Vitals/I&O/Wt Last Vital Signs Temp 98.1 F 05/27/19 04:00 Pulse 81 05/27/19 06:00 Resp 16 05/27/19 06:00 BP 115/97 05/27/19 06:00 Pulse Ox 94 05/27/19 06:00 05/26/19 05/27/19 05/27/19 22:59 06:59 14:59 Intake Total 100 / 200 120 / 320 Output Total 600 / 1300 450 / 1750 Balance -500 / -1100 -330 / -1430 Physical Exam Const: COMMON NORMALS: no apparent distress ORIENTATION/CONSCIOUSNESS: Yes confused Resp: COMMON NORMALS: normal respiratory effort and clear to auscultation bilaterally AUSCULTATION: clear to auscultation bilaterally Cardio: COMMON NORMALS: regular rate, regular rhythm and S2 normal heart sound RATE: regular rate RHYTHM: regular rhythm HEART SOUNDS: S2 normal OTHER: No lower extremity edema GI: COMMON NORMALS: normal to inspection, nondistended, normoactive bowel sounds, soft to palpation and non-tender PALPATION: Yes soft Neuro: COMMON NORMALS: no focal motor deficits Urinary Catheter Management^: Alfaro: Cath Placed During This Visit: no 2-way Urethral: Cath Placed During This Visit: no Data : 05/27/19 03:47 05/27/19 03:47 A&P Assessment and plan (1) Acute on chronic diastolic (congestive) heart failure: Improved Status: Acute Code(s): I50.33 - Acute on chronic diastolic (congestive) heart failure (2) Atrial fibrillation: Rate controlled. Status: Acute Code(s): I48.91 - Unspecified atrial fibrillation (3) Hypoxia: Improved Status: Acute Code(s): R09.02 - Hypoxemia (4) Acute bronchitis: Improved Status: Acute Code(s): J20.9 - Acute bronchitis, unspecified (5) UTI due to extended-spectrum beta lactamase (ESBL) producing Escherichia coli: Status: Acute Code(s): N39.0 - Urinary tract infection, site not specified; B96.29 - Other Escherichia coli [E. coli] as the cause of diseases classified elsewhere; Z16.12 - Extended spectrum beta lactamase (ESBL) resistance (6) Confusion and disorientation: This is likely multifactorial with sundowning and infection playing a role Status: Acute Code(s): R41.0 - Disorientation, unspecified Additional A&P Information PLAN: Continue current treatment Replete potassium I will keep patient in ICU for close monitoring DVT prophylaxis not indicated because of Eliquis use CODE STATUS: on previous admissions she was DNR and DNI son called today and said okay with intubation but no CPR Attestations Medical Necessity Statement*: Patient with UTI and some confusion requires close ICU monitoring and treatment. Time Spent in Patient Care: 16 - 35 minutes Coding Level of Care Code Acute Dynamics Ax Technical Architect for [facility] Fwd Diagnoses Acute on chronic diastolic (congestive) heart failure I50.33 Atrial fibrillation I48.91 Hypoxia R09.02 Acute bronchitis J20.9 UTI due to extended-spectrum beta lactamase (ESBL) producing Escherichia coli N39.0; B96.29; Z16.12 Confusion and disorientation R41.0
--- NOTE | 2019-05-27 10:44 | PC.NURSE ---
1044- NEED CONSENT FROM BROTHER FOR PICC PLACEMENT, NOT PRESENT AT THIS TIME
[2019-05-27] MEDS: FUROsemide 10 mg/mL SDV 10mL 60 MG IVP ×2 (12:37→20:19)
[2019-05-27] MEDS: pantoprazole DR 40 mg Tablet PO (12:38)
[2019-05-27] MEDS: duloxetine 60 mg Capsule PO (12:38)
[2019-05-27] MEDS: spironolactone 25 mg Tablet 50 MG PO (12:38)
[2019-05-27] MEDS: phenyleph-mineral oil-petrolat Oint 28 gm 1 APPLIC PR (12:40)
--- NOTE | 2019-05-27 12:53 | PC.CHAP ---
Pastoral Care Encounter/Spiritual Assessment Type of Contact [] Declined flooring grader visit [] Patient/Family/Request visit [] Outpatient visit [] Follow-up visit [] Physician referral [] Code/Alert [] Routine visit [] Staff referral [] Actively dying [] Patient sleeping [] Family support [] [] Out of room [] Palliative care [] [] Receiving care in room [] Pre-surgical visit [] Trauma [] Long length of stay [] ICU visit [] Other: Relational/Emotional Strength [] Patient feels connected with others/family/visitors/staff [] Distress [] Loneliness/isolation [] Abandonment Spirituality of Patient [] Person of Moraima [] Attends Zoroastrianism of their Moraima [] Believes in Prayer [] Reads Bible or Latter-Day materials [] There are Spiritual issues to be addressed Transformer Shop Supervisor Interventions [] Prayer [] Active listening [] Non-anxious presence [] Spiritual/emotional support [] Crisis/trauma care [] Spiritual counseling [] Bereavement support [] Provided bereavement packet [] Provided Bible/devotional materials [] Provided toy/stuffed animal, coloring book to patient or family member [] Provided Communion [] Anointing/[place] [] Salvation [] Completed spiritual assessment [] Other: Impact on Illness or Injury [] Angry [] Fearful [] Anxious [] Often cries [] Exhaustion [] Unable to work [] Unable to attend taoism [] Unable to walk/stand [] Unable to read [] Unable to drive [] Unable to eat/drink [] Unable to sleep [] Unable to be with family [] Patient intubated [] Other: Summary The patient was in isolation. The flooring grader prayed for the patient outside the door. Time spent with patient 5 min.
--- NOTE | 2019-05-27 19:28 | PC.NURSE ---
bedside report rcvd at this time vss per pt sitting up in chair at this time . pt not answering questions in words but screaming when talked to . attempted to redirect and check orientation but unable to assess at this time bismark cornell.
[2019-05-27] MEDS: dextrose 5%-lr + KCl 20 1,000 ML 50 MEQ IV (20:18)
[2019-05-27] MEDS: diphenhydrAMINE 50 mg/mL SDV 1mL 12.5 MG IVP (20:19)
--- NOTE | 2019-05-27 20:33 | PC.NURSE ---
pt assisted to bed. very [place] but answering questions appropriately . vss per cm pt continues to holler out but has intermittent periords of lucidness . hs meds given offered food pt staes im not hungry honey encouraged po intake. angela cornell
[2019-05-28] VITALS (18 sets, daily range): BP systolic 105–167; BP diastolic 65–113; PULSE 71–106; RESP 13–23; TEMP 36.6–36.9; O2SAT 89–100; BMI 25.5
[2019-05-28 07:58] LABS: Basophils % 0.1 %; Hematocrit 42.7 % (37.0-47.0); Hemoglobin 12.8 g/dL (11.5-15.3); Lymphocytes # 1.3 10^3/uL (0.8-4.8); Lymphocytes % 11.2 %; Mean Corpuscular Hemoglobin 26.2 pg (28.0-34.0); Mean Corpuscular Volume 87.3 fL (81-99); Mean Platelet Volume 10.7 fL (7.4-10.4); Monocytes # 1.1 10^3/uL (0.2-0.9); Monocytes % 9.4 %; Neutrophils # 8.9 10^3/uL (1.8-7.7); Neutrophils % 78.2 %; Nucleated Red Blood Cells % 0 %; Platelet Count 332 10^3/cmm (130-400); Red Blood Count 4.89 10^6/uL (4.1-5.3); Red Cell Distribution Width 15.9 % (12.1-15.1); White Blood Count 11.4 10^3/uL (4.0-10.0)
[2019-05-28 08:11] LABS: Alanine Aminotransferase < 5 U/L (0-33); Albumin Level 2.6 g/dL (3.5-5.2); Alkaline Phosphatase 74 IU/L (35-105); Anion Gap 14.2 (5-19); Blood Urea Nitrogen 31 mg/dL (8-23); Calcium 8.7 mg/dL (8.5-10.5); Carbon Dioxide 39 mmol/L (22-29); Chloride 100 mmol/L (98-107); Globulin 4.1 g/dL (1.3-4.6); Glucose 168 mg/dL (65-115); Potassium 3.2 mmol/L (3.5-5.1); Sodium 150 mmol/L (136-145); Total Bilirubin 0.5 mg/dL (0.15-1.2); Total Protein 6.7 g/dL (6.6-8.7)
[2019-05-28 08:15] LABS: Aspartate Amino Transferase 19 U/L (0-32)
--- NOTE | 2019-05-28 08:58 | PM.PN ---
Subjective Subjective: Interval history: Patient is confused and continues to constantly repeat help. Discussed with RN yesterday and this morning and apparently this has been going on at nursing facility as well. Patient is not eating anything and refuses all of her medications. Her white blood cell count is improving and vitals are stable. She was started on IV fluids yesterday and had approximately 1000 mL urinary output since yesterday. Medications: Reviewed: Yes Vitals/I&O/Wt Last Vital Signs Temp 97.3 F L 05/27/19 20:00 Pulse 88 05/28/19 06:00 Resp 13 05/28/19 06:00 BP 122/83 05/28/19 06:00 Pulse Ox 91 05/28/19 06:00 05/27/19 05/28/19 05/28/19 22:59 06:59 14:59 Intake Total 100 / 300 0 / 300 100 / 100 Output Total 1200 / 1200 1100 / 2300 Balance -1100 / -900 -1100 / -2000 100 / 100 Weight last 48 hrs Weight 69.717 kg Physical Exam Const: COMMON NORMALS: no apparent distress GENERAL APPEARANCE: ill appearing ORIENTATION/CONSCIOUSNESS: Yes confused HENMT: FACE & SINUS: normal facial exam MOUTH: tongue normal Resp: COMMON NORMALS: normal respiratory effort and clear to auscultation bilaterally AUSCULTATION: clear to auscultation bilaterally and diminished lung sounds Cardio: COMMON NORMALS: regular rate, regular rhythm and S2 normal heart sound RATE: regular rate RHYTHM: regular rhythm HEART SOUNDS: S2 normal PERIPHERAL PULSES: radial pulses present OTHER: No lower extremity edema GI: COMMON NORMALS: normal to inspection, nondistended, normoactive bowel sounds, soft to palpation and non-tender INSPECTION: Yes normal to inspection AUSCULTATION: Yes normoactive bowel sounds PALPATION: Yes soft, No guarding and No rigid : BLADDER/KIDNEY EXAM: Yes catheter in place Neuro: COMMON NORMALS: moves all extremities and no focal motor deficits Skin: OTHER: Minimal left lower extremity skin abrasion covered with OptiForm. No evidence of infection. Urinary Catheter Management^: Alfaro: Cath Placed During This Visit: yes Urethral Indwelling: Yes Reason for Continuing Indwelling Catheter: Accurate Measurement of Urinary Output in Critically Ill Patients Urinary Catheter Date of Insertion: 05/23/19 Urinary Catheter Time of Insertion: 03:34 2-way Urethral: Cath Placed During This Visit: no Reason for Continuing Indwelling Catheter: Accurate Measurement of Urinary Output in Critically Ill Patients Data : 05/28/19 07:49 05/28/19 07:49 Micro: Microbiology 05/23/19 01:45 Blood Culture - Final Blood NO GROWTH AFTER 5 DAYS 05/23/19 01:45 Blood Culture - Final Blood NO GROWTH AFTER 5 DAYS A&P Assessment and plan (1) Acute on chronic diastolic (congestive) heart failure: Improved Status: Acute Code(s): I50.33 - Acute on chronic diastolic (congestive) heart failure (2) Atrial fibrillation: Rate controlled. Status: Acute Code(s): I48.91 - Unspecified atrial fibrillation (3) Hypoxia: Improved Status: Acute Code(s): R09.02 - Hypoxemia (4) Acute bronchitis: Improved Status: Acute Code(s): J20.9 - Acute bronchitis, unspecified (5) UTI due to extended-spectrum beta lactamase (ESBL) producing Escherichia coli: Status: Acute Code(s): N39.0 - Urinary tract infection, site not specified; B96.29 - Other Escherichia coli [E. coli] as the cause of diseases classified elsewhere; Z16.12 - Extended spectrum beta lactamase (ESBL) resistance (6) Confusion and disorientation: This is likely multifactorial with sundowning and infection playing a role Status: Acute Code(s): R41.0 - Disorientation, unspecified Additional A&P Information PLAN: Continue current treatment Replete potassium and change IV fluids to half-normal saline with potassium to avoid hypernatremia I will keep patient in ICU for close monitoring given her confusion. Overall patient appears to have poor prognosis and I will try to discuss case with patient's son when he comes to visits. Discussed with RN to notify me when son is here. Since patient refuses and was refusing previously her treatment I think hospice would be an appropriate next step. DVT prophylaxis not indicated because of Eliquis use CODE STATUS: on previous admissions she was DNR and DNI son called today and said okay with intubation but no CPR Attestations Medical Necessity Statement*: Patient was infectious process and confusion requires close ICU monitoring and treatment for safety concerns. 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
--- NOTE | 2019-05-28 09:27 | PC.SOCIAL ---
IMM update Spoke with patient's son, Norbert via phone to update him of IMM, informed him that a copy was left in his mother's room. He verbalized understanding and had no questions. Initialed, dated, and timed copy in chart.
--- NOTE | 2019-05-28 09:27 | PC.NURSE ---
0927- [facility] CONSENT IS NOT COMPLETED AT THIS TIME. PHYSICIAN TO SPEAK WITH SON REGARDING PLAN OF CARE.
--- NOTE | 2019-05-28 09:44 | PC.NURSE ---
DR MARSHALL HERE TO VISIT WITH PT SON (FANTASMA PIPER) REGARDING PROGNOSIS. DISCUSSED HOSPICE & CODE STATUS. PT NOT EATING/TAKING MEDS. DID DRINK SOME MILK/SODA. CONTINUES TO YELL HELP BUT DOESN'T ANSWER WHEN ASKED WHAT SHE NEEDS.
--- NOTE | 2019-05-28 09:51 | PC.CHAP ---
Pastoral Care Encounter/Spiritual Assessment Type of Contact [] Declined synthetic filament extruder visit [] Patient/Family/Request visit [] Outpatient visit [] Follow-up visit [] Physician referral [] Code/Alert [] Routine visit [] Staff referral [] Actively dying [] Patient sleeping [] Family support [] [] Out of room [] Palliative care [] [] Receiving care in room [] Pre-surgical visit [] Trauma [] Long length of stay [] ICU visit [] Other: Relational/Emotional Strength [] Patient feels connected with others/family/visitors/staff [] Distress [] Loneliness/isolation [] Abandonment Spirituality of Patient [] Person of Moraima [] Attends Jewish of their Moraima [] Believes in Prayer [] Reads Bible or Jewish materials [] There are Spiritual issues to be addressed Avionics Safety Inspector Interventions [] Prayer [] Active listening [] Non-anxious presence [] Spiritual/emotional support [] Crisis/trauma care [] Spiritual counseling [] Bereavement support [] Provided bereavement packet [] Provided Bible/devotional materials [] Provided toy/stuffed animal, coloring book to patient or family member [] Provided Communion [] Anointing/[place] [] Salvation [] Completed spiritual assessment [] Other: Impact on Illness or Injury [] Angry [] Fearful [] Anxious [] Often cries [] Exhaustion [] Unable to work [] Unable to attend voodoo [] Unable to walk/stand [] Unable to read [] Unable to drive [] Unable to eat/drink [] Unable to sleep [] Unable to be with family [] Patient intubated [] Other: Summary The patient was in isolation. The synthetic filament extruder prayed for the patient outside the door. Time spent with patient 6 min.
[2019-05-28] MEDS: sodium chlor 0.45% +KCl 20 mEq 20 MEQ/1,000 ML BAG 100 MEQ IV (12:01)
[2019-05-28] MEDS: potassium chloride premix 40 MEQ/100 ML PREMIX 25 MEQ IV (12:02)
--- NOTE | 2019-05-28 12:49 | XR_ITS ---
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 The wire still remains within the lumen of the catheter. Tip is in the distal SVC. No complications. Slight elevation of the LEFT hemidiaphragm. No pleural effusion or pneumothorax. Cardiac size: Mildly enlarged cardiac silhouette. Mediastinum/Aorta: Mild atherosclerosis aorta. Prior LEFT subclavian cardiac pacer. No osseous abnormality seen. XR/XR chest 1V portable 11410 IMPRESSION: Satisfactory placement of a LEFT PICC line.
[2019-05-28] MEDS: diphenhydrAMINE 50 mg/mL SDV 1mL 25 MG IVP (16:53)
[2019-05-28] MEDS: FUROsemide 10 mg/mL SDV 10mL 60 MG IVP (20:39)
[2019-05-29] VITALS (7 sets, daily range): BP systolic 108–139; BP diastolic 68–89; PULSE 88–110; RESP 18–22; TEMP 35.6–36.7; O2SAT 90–92
--- NOTE | 2019-05-29 00:29 | PC.NURSE ---
linda called ot sean carlson on med surg angela cornell
[2019-05-29 04:50] LABS: Basophils % 0.1 %; Eosinophils % 0.3 %; Hematocrit 47.7 % (37.0-47.0); Hemoglobin 14.2 g/dL (11.5-15.3); Lymphocytes # 1.9 10^3/uL (0.8-4.8); Lymphocytes % 16.3 %; Mean Corpuscular HGB Conc 29.8 g/dL (30.0-36.0); Mean Corpuscular Hemoglobin 26.8 pg (28.0-34.0); Mean Platelet Volume 10.6 fL (7.4-10.4); Monocytes # 1.2 10^3/uL (0.2-0.9); Monocytes % 10.7 %; Neutrophils # 8.3 10^3/uL (1.8-7.7); Neutrophils % 71.7 %; Nucleated Red Blood Cells % 0 %; Platelet Count 338 10^3/cmm (130-400); White Blood Count 11.6 10^3/uL (4.0-10.0)
[2019-05-29 05:09] LABS: Alanine Aminotransferase < 5 U/L (0-33); Albumin Level 2.7 g/dL (3.5-5.2); Alkaline Phosphatase 74 IU/L (35-105); Anion Gap 15.1 (5-19); Aspartate Amino Transferase 43 U/L (0-32); Blood Urea Nitrogen 28 mg/dL (8-23); Calcium 9.4 mg/dL (8.5-10.5); Carbon Dioxide 40 mmol/L (22-29); Chloride 98 mmol/L (98-107); Globulin 4.1 g/dL (1.3-4.6); Glucose 137 mg/dL (65-115); Potassium 4.1 mmol/L (3.5-5.1); Sodium 149 mmol/L (136-145); Total Protein 6.8 g/dL (6.6-8.7)
[2019-05-29] MEDS: ipratropium-albuterol 3 mL Neb INHALATION (08:21)
[2019-05-29] MEDS: enoxaparin 80 mg/0.8 mL Syringe 70 MG SUBCUT (11:42)
[2019-05-29] MEDS: ertapenem 1,000 MG in sodium chloride 0.9% (plus) 100 ML 200 MG IV (12:18)
--- NOTE | 2019-05-29 14:57 | PM.DCS ---
Discharge Providers Date of Admission: 05/23/19 03:20 Date of Discharge: Date of Discharge: May 29, 2019 Attending Provider at Admission: Lazaro Crockett MD Attending Provider at Discharge: Venkata Monson MD Primary Care Provider: Andreas Sanabria DO Diagnoses at Discharge Discharge Diagnosis (1) Acute on chronic diastolic (congestive) heart failure: Status: Acute (2) Atrial fibrillation: Status: Acute (3) Hypoxia: Status: Acute (4) Acute bronchitis: Status: Acute (5) UTI due to extended-spectrum beta lactamase (ESBL) producing Escherichia coli: Status: Acute (6) Confusion and disorientation: Status: Acute Reason for Visit Reason for Visit: Reason For Visit: CHF, NSTEMI Hospital Course Discharge Summary: Blanka Oro is a 78 year old female who carries diagnosis of diastolic congestive heart failure with preserved ejection fraction, pacemaker, chronic PE, anticoagulation with Eliquis, oxygen dependent COPD 2 to 3 L nasal cannula sent by [facility] [place] because of hypoxia on May 23, 2019. In ER patient was found to be in fluid overload leading to hypoxic respiratory failure for which she was transferred to the ICU and treated with BiPAP ventilation and IV diuresis. Patient responded well to the IV diuresis and was on minimal oxygen supplementation with nasal cannula. Her blood work showed leukocytosis with and urine culture was suggestive of ESBL E. coli. Patient continued to remain confused even after 5-day course of appropriate antibiotics and continue to refuse important oral medications like her Eliquis and blood pressure medications. On further interview with the son he stated that patient has been having frequent episodes even prior to the admission at the correction when she would continue to refuse medications and food 4 days. As changes in her mental status were not new and has been going on for many months along with continued poor mental status which seems to be her new baseline further goals of care were discussed with the son and ask patient continued to refuse oral diet or medications and option for PEG tube placement was given but son stated that his mother would have not wanted a PEG tube placement so further goals of care with hospice were discussed. Son agreed that at this point hospice would be the best option to achieve the goals of care. Patient is to be discharged back to the correction and after finishing of 3 more days of antibiotic course hospice is to be sought as an outpatient. Son also verbalized the understanding that if patient remains nothing by mouth both for her diet and medications she can deteriorate in her health fast and can even . Son agreed and verbalized understanding to the plan. Physical Exam Narrative: EXAM NARRATIVE: General: No acute distress, confused, incoherent, maintaining her airway. HEENT: PERRLA, pupils bilaterally equal and reactive Chest: Normal vesicular breath sounds, no added sounds, equal good air entry bilaterally CVS: S1-S2 regular, no murmurs, no tachycardia, no gallops, no rubs Abdomen: Soft, nontender, no organomegaly, bowel sounds present Neuro: No focal deficits, no facial deformity, power 3 x 5 in all limbs Urinary Catheter Management^: Alfaro: Cath Placed During This Visit: yes Urethral Indwelling: Yes Reason for Continuing Indwelling Catheter: Accurate Measurement of Urinary Output in Critically Ill Patients Urinary Catheter Date of Insertion: 05/23/19 Urinary Catheter Time of Insertion: 03:34 2-way Urethral: Cath Placed During This Visit: no Reason for Continuing Indwelling Catheter: Accurate Measurement of Urinary Output in Critically Ill Patients Discharge Data Data Completed and Pending: Completed Studies During Hospitalization Category Date Time Status CT chest wo con 7 1250 Routine Cat Scan 05/24/19 12:41 Completed CXRP [XR chest 1V portable [id number]] U rgent Exams 05/28/19 12:49 Completed XR chest 1V terrance ble [id number] Stat Exams 05/23/19 01:30 Completed CV echo complete* [id number] Routine Ultrasound 05/23/19 14:26 Completed Pending at discharge Category Date Time Status Sputum Culture an d Gram Stain Rominai ne Lab 05/25/19 08:33 Uncollected Labs from last 24 hours 05/29/19 05/29/19 04:27 04:27 WBC 11.6 H RBC 5.30 Hgb 14.2 Hct 47.7 H MCV 90.0 MCH 26.8 L MCHC 29.8 L RDW 16.0 H Plt Count 338 MPV 10.6 H Neut % (Auto) 71.7 Lymph % (Auto) 16.3 [place] % (Auto) 10.7 Eos % (Auto) 0.3 Baso % (Auto) 0.1 Neut # (Auto) 8.3 H Lymph # (Auto) 1.9 [place] # (Auto) 1.2 H Eos # (Auto) 0.0 Baso # (Auto) 0.0 Nucleated RBC % (a uto) 0 Nucleated RBCs # 0.0 Sodium 149 H Potassium 4.1 Chloride 98 Carbon Dioxide 40 H Anion Gap 15.1 BUN 28 H Creatinine 1.0 H Glucose 137 H Calcium 9.4 Total Bilirubin 1.0 AST 43 H ALT < 5 Alkaline Phosphata se 74 Total Protein 6.8 Albumin 2.7 L Globulin 4.1 Vitals: Last Vital Signs Temp 97.8 F 05/29/19 11:35 Pulse 98 05/29/19 11:35 Resp 20 H 05/29/19 11:35 BP 108/68 05/29/19 11:35 Pulse Ox 90 05/29/19 11:35 Discharge Plan Discharge Patient Disposition: Xfer SNF Condition: Fair Prescriptions: New Invanz 1 gram recon soln 1 gm IV DAILY 3 Days Qty: 3 RF: 0 Continued sotalol 80 mg Tablet 80 mg PO BID RF: 0 potassium chloride 20 mEq Tablet,Er Particles/Crystals 20 meq PO DAILY RF: 0 Culturelle 10 billion cell Capsule 1 cap PO DAILY RF: 0 spironolactone 50 mg Tablet 50 mg PO DAILY RF: 0 Cymbalta 60 mg Capsule,Delayed Release(Dr/Ec) 60 mg PO DAILY RF: 0 omeprazole 20 mg Tablet,Delayed Release (Dr/Ec) 20 mg PO DAILY RF: 0 Eliquis 5 mg Tablet 5 mg PO BID RF: 0 Lasix 40 mg Tablet 40 mg PO BID Qty: 30 RF: 0 albuterol sulfate 2.5 mg /3 mL (0.083 %) Solution For Nebulization 2.5 mg INHALATION Q4H PRN (Reason: Wheezing) RF: 0 hydrocodone-acetaminophen 5-325 mg Tablet 1 tab PO Q4H PRN (Reason: Pain) RF: 0 ondansetron HCl [Zofran] 4 mg Tablet 4 mg PO Q4H PRN (Reason: Nausea And Vomiting) RF: 0 magnesium hydroxide [Milk of Magnesia] 400 mg/5 mL Suspension 30 ml PO DAILY PRN (Reason: Constipation) RF: 0 diphenhydramine HCl [Benadryl] 25 mg Capsule 25 mg PO BEDTIME PRN (Reason: Allergy Symptoms) RF: 0 calcium carbonate [Tums] 200 mg calcium (500 mg) Tablet,Chewable 200 - 400 mg PO Q4H PRN (Reason: Indigestion) RF: 0 Fleet Enema 19-7 gram/118 mL Enema 118 ml [place] DAILY PRN (Reason: Constipation) RF: 0 nitroglycerin 0.4 mg Tablet, Sublingual 0.4 mg SUBLINGUAL Q5M PRN (Reason: Chest Pain) RF: 0 bisacodyl [Dulcolax (bisacodyl)] 5 mg Tablet,Delayed Release (Dr/Ec) 5 mg PO DAILY PRN (Reason: Constipation) RF: 0 nystatin 100,000 unit/gram Powder 1 applic TOPICAL BID PRN (Reason: galded area) RF: 0 Preparation H(pe,cb) 0.25-88.44 % Suppository 1 supp NJ Q6H PRN (Reason: Hemorrhoids) RF: 0 Discontinued lorazepam [Ativan] 0.5 mg Tablet 0.5 mg PO TID PRN (Reason: Anxiety) RF: 0 lorazepam [Ativan] 0.5 mg Tablet 0.5 mg PO TID PRN (Reason: Anxiety) RF: 0 Discharge Orders: Discharge Order (Routine); Ordered 05/29/19 Ordered By: Venkata Monson Referrals: [facility] [Outside] Discharge Diet: Advance as tolerated Discharge Activity: Resume usual activity Patient Instructions: Hydrocodone/Acetaminophen (By mouth) Activity Restrictions/Additional Instructions: After completion of IV course and of antibiotics patient will be going for hospice as an outpatient due to continued poor mental status which seems to be a new baseline for last 3 to 4 months as she continues to refuse oral medication and diet. Discharge Date/Time: 05/29/19 18:15 Discharge Attestations Time Spent in Discharge Care*: greater than 30 min Specific Discharge Activities: Specific discharge activities: educating and/or supporting family/caregiver, discussing with outsole caser/social workers/dc planners and evaluating patient/reviewing data Status at Discharge: Cognitive status at discharge: cognitively intact, Behavioral status at discharge: cooperative, Functional status at discharge: bed bound Overall status at discharge: patient has a new baseline Quality Metrics Clinical Quality Measures During this hospital stay, did patient experience: None Coding Level of Care Code Acute [employer] for Bety Fwarabella Diagnoses Acute on chronic diastolic (congestive) heart failure I50.33 Atrial fibrillation I48.91 Hypoxia R09.02 Acute bronchitis J20.9 UTI due to extended-spectrum beta lactamase (ESBL) producing Escherichia coli N39.0; B96.29; Z16.12 Confusion and disorientation R41.0
== END 2019-05-29 18:15 | disposition skilled nursing facility (03) | DRG 291 ==
LOC: ER 03:56 → ICU 03:57 → MEDSURG 05-29 00:44
PROVIDERS: Internal Medicine; Student in an Organized Health Care Education/Training Program; Admitting Provider Internal Medicine; Emergency Provider Emergency Medicine; Family Provider Internal Medicine; PCP Internal Medicine; Visit Provider Student in an Organized Health Care Education/Training Program
DX: I11.0 Hypertensive heart disease with heart failure (principal); J96.21 Acute and chronic respiratory failure with hypoxia; I50.33 Acute on chronic diastolic (congestive) heart failure; Z99.81 Dependence on supplemental oxygen; Z66 Do not resuscitate; M19.90 Unspecified osteoarthritis, unspecified site; I48.91 Unspecified atrial fibrillation; I25.10 Atherosclerotic heart disease of native coronary artery without angina pectoris; E11.9 Type 2 diabetes mellitus without complications; K59.00 Constipation, unspecified; J43.9 Emphysema, unspecified; M79.7 Fibromyalgia; K21.9 Gastro-esophageal reflux disease without esophagitis; E78.5 Hyperlipidemia, unspecified; E87.6 Hypokalemia; G47.00 Insomnia, unspecified; G47.33 Obstructive sleep apnea (adult) (pediatric); Z91.14 Patient's other noncompliance with medication regimen; M81.0 Age-related osteoporosis without current pathological fracture; Z95.0 Presence of cardiac pacemaker; Z86.718 Personal history of other venous thrombosis and embolism; Z79.01 Long term (current) use of anticoagulants
CPT/HCPCS: 12345; 36415; 36591; 36600; 51702; 71045; 71250; 80048; 80053; 81001; 82803; 83605; 83735; 83880; 84484; 85025; 85610; 87040; 87077; 87086; 87186; 87804; 93005; 93306; 94640; 94660; 96365; 96366; 96372; 96374; 96375; 97161; 99284; C1751; J0743; J1200; J1335; J1650; J1940; J2405; J2930; J3480; J3490; J7050